=== PATIENT | female | born 1945 | race Caucasian/White ===

== ENCOUNTER 2017-09-24 14:11 | Emergency (ER) | payer BC, OTHER ==
[~2017-09-24] VITALS: Ht 157.5 cm; Wt 72.6 kg
[2017-09-24 15:08] LABS: Basophils # (auto) 0.1 uL; Basophils % (auto) 1.4 % (0.0-2.0); Eosinophils # (auto) 0.2 uL; Hemoglobin 13.6 g/dL (12.2-16.2); Lymphocytes # (auto) 2.2 uL; Lymphocytes % (auto) 26.5 % (10.0-50.0); Mean Corpuscular Hemoglobin 29.5 pg (28.0-32.0); Mean Corpuscular Hgb Conc. 33.9 g/dL (32.0-36.0); Monocytes # (auto) 0.4 uL; Monocytes % (auto) 5.3 % (0.0-12.0); Neutrophils # (auto) 5.5 uL; Neutrophils % (auto) 64.8 % (37.0-80.0); Nucleated Red Blood Cells % 0.1 %; Platelet Count (auto) 217 10^3/uL (140-450); Red Cell Distribution Width 14.7 % (11.8-14.3); White Blood Cell 8.4 10^3/uL (4.4-10.8)
[2017-09-24 15:40] LABS: Alanine Aminotransferase 37 U/L (13-56); Albumin 3.3 g/dL (3.4-5.0); Alkaline Phosphatase 105 U/L (45-117); Anion Gap 6 (5-15); Aspartate Aminotransferase 22 U/L (15-37); Bilirubin, Total 0.3 mg/dL (0.2-1.0); Blood Urea Nitrogen 11 mg/dL (7-18); Calcium 8.3 mg/dL (8.5-10.1); Carbon Dioxide 26 mmol/L (21-32); Chloride 106 mmol/L (98-107); GFR African American 78 mL/min; GFR Non-African American 64 mL/min; Glucose 263 mg/dL (74-106); Potassium 3.9 mmol/L (3.5-5.1); Sodium 138 mmol/L (136-145); Total Protein 7.2 g/dL (6.4-8.2)
[2017-09-24 16:12] LABS: Urine Bacteria FEW /hpf (None Seen); Urine Blood Negative /uL (Negative); Urine Mucus FEW (None Seen); Urine Specific Gravity 1.008 (1.001-1.035); Urine WBC 2 /hpf (0 - 5)
[2017-09-24 16:56] VITALS: BP 160/75
== END 2017-09-24 17:32 | disposition home or self-care (01) ==
LOC: ER 14:11
DX: R07.89 Other chest pain (principal); R51 Headache; E11.9 Type 2 diabetes mellitus without complications; I10 Essential (primary) hypertension; Z90.710 Acquired absence of both cervix and uterus
CPT/HCPCS: 36415; 71045; 80053; 81001; 84484; 85025; 93005; 99291

== ENCOUNTER 2020-11-27 06:52 | Emergency (ER) | payer OTHER ==
[~2020-11-27] VITALS: Ht 160 cm; Wt 74.8 kg
[2020-11-27 08:48] LABS: Urine Bacteria MANY /hpf (None Seen); Urine Blood Negative /uL (Negative); Urine Hyaline Cast FEW /lpf (0 - 2); Urine Mucus FEW (None Seen); Urine Specific Gravity 1.012 (1.001-1.035); Urine WBC 2 /hpf (0 - 5)
[2020-11-27] MEDS ORDERED: cloNIDine HCL 0.1 MG TAB PO ONE (09:15)
[2020-11-27 09:33] LABS: Eosinophils # (auto) 0.3 10 ^3/uL (0-0.8); Hemoglobin 11.2 g/dL (12.2-16.2); Monocytes # (auto) 0.5 10 ^3/uL (0-1.3)
[2020-11-27 09:36] LABS: Basophils # (auto) 0 10 ^3/uL (0-0.2); Basophils % (auto) 0.4 % (0.0-2.0); Hematocrit 33.7 % (36.0-46.0); Lymphocytes # (auto) 2.9 10 ^3/uL (0.4-5.4); Lymphocytes % (auto) 30.3 % (10.0-50.0); Mean Corpuscular Hgb Conc. 33.3 g/dL (32.0-36.0); Monocytes % (auto) 5.4 % (0.0-12.0); Neutrophils # (auto) 5.8 10 ^3/uL (1.6-8.6); Neutrophils % (auto) 60.9 % (37.0-80.0); Nucleated Red Blood Cells % 0.1 %; Platelet Count (auto) 232 10^3/uL (140-450); Red Blood Cells 4.16 10^6/uL (4.0-5.20); White Blood Cell 9.6 10^3/uL (4.4-10.8)
[2020-11-27 09:52] LABS: Albumin 3.2 g/dL (3.4-5.0); Calcium 8.4 mg/dL (8.5-10.1); Magnesium 1.9 mg/dL (1.6-2.6); Potassium 4.3 mmol/L (3.5-5.1)
[2020-11-27 09:58] LABS: BUN/Creatinine Ratio 16.4; Bilirubin, Total 0.2 mg/dL (0.2-1.0)
[2020-11-27 11:00] VITALS: BP 115/65
== END 2020-11-27 12:58 | disposition home or self-care (01) ==
LOC: ER 06:52
DX: M54.17 Radiculopathy, lumbosacral region (principal); M25.561 Pain in right knee; N39.0 Urinary tract infection, site not specified; I10 Essential (primary) hypertension; E11.21 Type 2 diabetes mellitus with diabetic nephropathy; E44.1 Mild protein-calorie malnutrition; I45.10 Unspecified right bundle-branch block; E78.5 Hyperlipidemia, unspecified; Z68.29 Body mass index [BMI] 29.0-29.9, adult; Z88.5 Allergy status to narcotic agent; Z88.8 Allergy status to other drugs, medicaments and biological substances; Z90.710 Acquired absence of both cervix and uterus
CPT/HCPCS: 36415; 71046; 72131; 73700; 80053; 81001; 83735; 84443; 85025; 93005

== ENCOUNTER 2024-07-08 03:34 | Inpatient (IN) | payer OTHER ==
[~2024-07-08] VITALS: Ht 157.5 cm; Wt 72.1 kg
[2024-07-08] MEDS: SODIUM CHLORIDE 0.9% 1,000 ML IV ONE (04:00)
--- NOTE | 2024-07-08 04:24 | ED.PDOC ---
History of Present Illness HPI Comments 79 y/o F, with a Hx of hemorrhoids, DM II, HLD, HTN, and hysterectomy, presents with c/o rectal bleeding, today. Patient endorses on sudden and unprovoked onset of constant bleeding emanating from her rectum since last night. She comments on blood being bright red in appearance and previous isolated episode of rectal bleeding taking place 1 month ago. Patient also c/o alternating constipation and diarrhea, lately, for unspecified duration of time. She refutes any recent abdominal surgery, injuries, strenuous activities, or other relevant or pertinent information at time of assessment. Patient denies having any abdominal or rectal pain, nausea, vomiting, lightheadedness, weakness, fever, chills, or other associated symptoms or modifiers at this time. Chief Complaint: Rectal Pain Time Seen by MD: 03:55 Primary Care Provider: DR GUILLAUME Reviewed Notes: Nurses Notes, Medications, Allergies Allergies: Coded Allergies: Codeine (Verified Allergy, Unknown, 09/24/17) Lisinopril (Verified Allergy, Unknown, 09/24/17) Information Source: Patient Mode of Arrival: Ambulatory Severity: Moderate Timing: Hours Duration: Since onset Prehospital treatment: None Past Medical History PAST MEDICAL HISTORY: DM (type II), High Lipids, HTN Past Medical History (Other): hemorrhoids Surgical History: Hysterectomy [employer]PER[employer] HELPER History: Denies all [employer] HELPER Hx Family History Family History: Unknown Social History Smoker: Non-Smoker Alcohol: Denies ETOH Use Drugs: Denies Drug Use Lives In: Home Gastrointestinal: reports: rectal bleeding All Other Systems: Reviewed and Negative (negative unless otherwise stated above or in HPI) Physical Exam General Appearance: No Apparent Distress, Normal HEENT: Normal ENT Inspection, Pharynx Normal, TMs Normal Neck: Full Range of Motion, Non-Tender, Normal, Normal Inspection Respiratory: Chest Non-Tender, Lungs Clear, No Accessory Muscle Use, No Respiratory Distress, Normal Breath Sounds Cardiovascular: No Edema, No JVD, No Murmur, No Gallop, Normal Peripheral Pulses, Regular Rate/Rhythm Breast Exam: Deferred Gastrointestinal: No Organomegaly, Non Tender, No Pulsatile Mass, Normal Bowel Sounds, Soft Genitalia: Deferred Pelvic: Deferred Rectal: Deferred Extremities: No calf tenderness, Normal capillary refill, Normal inspection, Normal range of motion, Non-tender, No pedal edema Musculoskeletal : Apperance: Normal Neurologic: Alert, property site manager II-XII nml as Tested, No Motor Deficits, Normal Affect, Normal Mood, No Sensory Deficits Cerebellar Function: Normal Reflexes: Normal Skin: Dry, Normal Color, Warm Lymphatic: No Adenopathy Was a procedure done? Was a procedure done?: No Differential Dx Considerations may include: hemorrhoids, lower GI bleed, anemia X-Ray, Labs, Meds, VS Vital Signs Date Time Temp Pulse Resp B/P (MAP) Pulse Ox O2 Delivery O2 Flow Rate FiO2 07/08/24 03:50 98.3 83 18 195/98 (130) 95 Lab Test 07/08/24 04:16 Range/Units White Blood Count 12.3 H 4.4-10.8 10^3/uL Red Blood Count 4.60 4.0-5.20 10^6/uL Hemoglobin 11.6 L 12.2-16.2 g/dL Hematocrit 35.8 L 36.0-46.0 % Mean Corpuscular Volume 77.7 L 80.0-100.0 fL Mean Corpuscular Hemoglobin 25.2 L 28.0-32.0 pg Mean Corpuscular Hemoglobin Concent 32.5 32.0-36.0 g/dL Red Cell Distribution Width 16.3 H 11.8-14.3 % Platelet Count 330 140-450 10^3/uL Mean Platelet Volume 6.1 L 6.9-10.8 fL Neutrophils (%) (Auto) 57.8 37.0-80.0 % Lymphocytes (%) (Auto) 32.4 10.0-50.0 % Monocytes (%) (Auto) 5.7 0.0-12.0 % Eosinophils (%) (Auto) 3.4 0.0-7.0 % Basophils (%) (Auto) 0.7 0.0-2.0 % Neutrophils # (Auto) 7.1 1.6-8.6 10 ^3/uL Lymphocytes # (Auto) 4.0 0.4-5.4 10 ^3/uL Monocytes # (Auto) 0.7 0-1.3 10 ^3/uL Eosinophils # (Auto) 0.4 0-0.8 10 ^3/uL Basophils # (Auto) 0.1 0-0.2 10 ^3/uL Nucleated Red Blood Cells 0.0 % Prothrombin Time 10.3 9.3-11.8 sec Prothrombin Time INR 0.97 0.9-1.15 Activated Partial Thromboplast Time 25.0 24.5-34.5 SEC Sodium Level 141 136-145 mmol/L Potassium Level 3.6 3.5-5.1 mmol/L Chloride Level 108 H 98-107 mmol/L Carbon Dioxide Level 24 20-31 mmol/L Anion Gap 9 5-15 Blood Urea Nitrogen 12 9-23 mg/dL Creatinine 1.13 H 0.550-1.02 mg/dL Glomerular Filtration Rate Calc 50 >90 mL/min BUN/Creatinine Ratio 10.6 10.0-20.0 Serum Glucose 183 H 74-106 mg/dL Calcium Level 9.8 8.7-10.4 mg/dL Current Medications Medications (Trade) Dose Ordered Sig/Kennedy Route Start Time Stop Time Status Last Admin Sodium Chloride 1,000 ml @ 1,000 mls/hr Q1H ONCE IV 07/08/24 04:00 07/08/24 04:59 DC 07/08/24 04:00 Time of 1ST Reevaluation: 04:25 Reevaluation 1ST: Unchanged Patient Education/Counseling: Diagnosis, Treatment Family Education/Counseling: No Family Present Additional Information I reviewed the following notes from patient's past medical encounters: ED physician note on 11/27/20 and 09/24/17 The following tests were ordered, and results were reviewed by me: CT abdomen/pelvis w/IV contrast, BMP, CBC, PTPTT I reviewed and agreed with the following test results read by other providers: CT abdomen/pelvis w/IV contrast I discussed treatment and results with medical personnel Departure 1 Departure Time of Disposition: 05:23 (Patient presented with bright red blood per rectum that was concerning for possible appendicits, gastritis, cholecystitis, colitis, gastroenteritis, sbo, rectal cancer, or orther possible surgical emergency. Data: 1. I ordered and reviewed the result of at least 3 labs including a CBC, BMP, and Urinalysis. 2. I independently interpreted the following tests: CT Abdoment and Pelvis is concerning for colitis or possible malignancy .Risk:This patient has a high risk of morbidity due to further diagnostic testing or treatment and may suffer from an acute abdominal process disorder. Workup reveals concerning for gastric cancer her bloody symptoms and patient should be admitted for further workup. and possible expert consultation. ) Impression: Primary Impression: Bright red blood per rectum Additional Impression: Generalized weakness Disposition: 09 ADMITTED INPATIENT Admit to: Med Surg Condition: Serious Critical Care Note Critical Care Time?: No Stability Stability form required: No Heart Score Heart Score: Heart Score Response (Comments) Value History N/A 0 EKG N/A 0 Age N/A 0 Risk Factors N/A 0 Troponin N/A 0 Total 0 I personally scribed for DEMETRIA RUBIO MD ([email or web address]) on 07/08/24 at 04:24. Electronically submitted by Alonzo Sainz ([email or web address]). DEMETRIA RUBIO MD Jul 08, 2024 04:24
[2024-07-08 04:31] LABS: Basophils # (auto) 0.1 10 ^3/uL (0-0.2); Eosinophils # (auto) 0.4 10 ^3/uL (0-0.8); Monocytes # (auto) 0.7 10 ^3/uL (0-1.3); Neutrophils # (auto) 7.1 10 ^3/uL (1.6-8.6)
[2024-07-08 04:32] LABS: Basophils % (auto) 0.7 % (0.0-2.0); Eosinophils % (auto) 3.4 % (0.0-7.0); Hematocrit 35.8 % (36.0-46.0); Hemoglobin 11.6 g/dL (12.2-16.2); Lymphocytes % (auto) 32.4 % (10.0-50.0); Mean Corpuscular Hemoglobin 25.2 pg (28.0-32.0); Mean Corpuscular Hgb Conc. 32.5 g/dL (32.0-36.0); Mean Corpuscular Volume 77.7 fL (80.0-100.0); Monocytes % (auto) 5.7 % (0.0-12.0); Neutrophils % (auto) 57.8 % (37.0-80.0); Platelet Count (auto) 330 10^3/uL (140-450); Red Cell Distribution Width 16.3 % (11.8-14.3); White Blood Cell 12.3 10^3/uL (4.4-10.8)
[2024-07-08 04:41] LABS: Potassium 3.6 mmol/L (3.5-5.1); Sodium 141 mmol/L (136-145)
[2024-07-08 04:42] LABS: Anion Gap 9 (5-15); Carbon Dioxide 24 mmol/L (20-31)
[2024-07-08 04:43] LABS: Calcium 9.8 mg/dL (8.7-10.4)
[2024-07-08 04:45] LABS: INR 0.97 (0.9-1.15); Prothrombin Time 10.3 sec (9.3-11.8)
[2024-07-08 04:47] LABS: BUN/Creatinine Ratio 10.6 (10.0-20.0); Blood Urea Nitrogen 12 mg/dL (9-23)
[2024-07-08 04:49] LABS: Chloride 108 mmol/L (98-107); Glucose 183 mg/dL (74-106)
[2024-07-08] MEDS: IOHEXOL 300 MG/ML 100ML BOTTLE IJ ONE (05:12)
--- NOTE | 2024-07-08 05:19 | DVH ---
Exam: CT CT AB PEL WITH IV CON ONLY History: brbpr Comparison Study: None available at time of dictation. Technique: Multidetector spiral CT of the abdomen was performed from lung bases to pubic symphysis. Axial imaging was performed with intravenous contrast following the uneventful administration of 100 ml Omnipaque 300. Coronal and sagittal multiplanar reformats were obtained from the axial data set b y the technologist. Radiation Dose : 1. Abdomen/Pelvis: CTDIvol 10.54 mGy, DLP 571.33 mGy*cm. Findings: Lung Bases: Lung bases are clear. Visualized portions of the heart and pericardium are unremarkable. Liver: The liver is normal in size. No focal lesions. Gallbladder and Biliary Tree: The gallbladder is unremarkable. No intrahepatic or extrahepatic bilia ry ductal dilatation. Spleen: Unremarkable Pancreas: The pancreas enhances normally and there are no focal lesions. The main pancreatic duct i s not dilated Adrenal Glands: Unremarkable Kidneys: Kidneys enhance symmetrically. No calculi or hydronephrosis. 1.9 cm right cortical renal cy st. GI tract: The stomach is grossly normal in appearance. No evidence of small bowel wall thickening or abnormal dilatation to suggest bowel obstruction. There is sigmoid diverticulosis without acute diver ticulitis. There is mild wall thickening in the cecum. The appendix is not visualized, however there are no inflammatory changes in the right lower quadrant to suggest acute appendicitis. Peritoneum/mesentery/retroperitoneum. No evidence of free intraperitoneal air. No ascites. No evidenc e of suspicious lymphadenopathy. Abdominal Wall: Unremarkable. Vasculature: Abdominal aorta and main branches are unremarkable. Normal vascular enhancement. Urinary Bladder: Grossly unremarkable for degree of distention. Pelvic Organs: Unremarkable Musculoskeletal: No aggressive focal bony lesions, acute fractures or dislocation. 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 IMPRESSION: 1. No acute abdominal or pelvic findings. 2. Mild wall thickening in the cecum could be related to underdistention. However, an underlying les ion is not excluded. Colonoscopy is recommended. 3. Colonic diverticulosis without acute diverticulitis.
[2024-07-08] MEDS ORDERED: NITROGLYCERIN 0.4 MG SL TAB SL PRN (06:45)
[2024-07-08] MEDS ORDERED: ONDANSETRON HCL 4 MG/2 ML VIAL IV PRN (07:00)
[2024-07-08] MEDS: SOD CHL 0.45% 1,000 ML IV ONE (07:10)
[2024-07-08] MEDS ORDERED: DEXTROSE (50%) 50ML SYRG IV PRN (07:15)
[2024-07-08] MEDS ORDERED: GOLYTELY 4L KIT PO ONE (07:15)
--- NOTE | 2024-07-08 07:22 | DVHHP2 ---
Admitting Diagnosis: GI bleed History of Present Illness HPI 79 y.o. female with a DM, HTN, arrived to the ED c/o lower abdominal pain and bright red blood per rectum for one day. Patient stated that she has had rectal bleeding episodes on and off for the past month or so along with episodes of constipation and diarrhea. Patient denies nausea, vomiting, fever, chills. Previous colonoscopy more than 10 y.a. Past Medical History Cardiac: HTN, Hyperlipidemia Endocrine: NIDDM Review of Systems Gastrointestinal: Abdominal Pain, Diarrhea, Constipation, Hematochezia H&P Exam Vital Signs Vital Signs Date Time Temp Pulse Resp B/P (MAP) Pulse Ox O2 Delivery O2 Flow Rate FiO2 07/08/24 03:50 98.3 83 18 195/98 (130) 95 General Appeara: Obese Head Exam: Normal inspection Neck Exam: Normal inspection Eye Exam: bilateral eye PERRL, bilateral eye EOMI Pulmonary/Respiratory: Lungs clear Cardiovascular/Chest: Regular rate Abdominal Pain Onset Location: RLQ, LLQ Neuro/Mental St: Alert Labs/Xrays Labs Test 07/08/24 04:16 Range/Units White Blood Count 12.3 H 4.4-10.8 10^3/uL Red Blood Count 4.60 4.0-5.20 10^6/uL Hemoglobin 11.6 L 12.2-16.2 g/dL Hematocrit 35.8 L 36.0-46.0 % Mean Corpuscular Volume 77.7 L 80.0-100.0 fL Mean Corpuscular Hemoglobin 25.2 L 28.0-32.0 pg Mean Corpuscular Hemoglobin Concent 32.5 32.0-36.0 g/dL Red Cell Distribution Width 16.3 H 11.8-14.3 % Platelet Count 330 140-450 10^3/uL Mean Platelet Volume 6.1 L 6.9-10.8 fL Neutrophils (%) (Auto) 57.8 37.0-80.0 % Lymphocytes (%) (Auto) 32.4 10.0-50.0 % Monocytes (%) (Auto) 5.7 0.0-12.0 % Eosinophils (%) (Auto) 3.4 0.0-7.0 % Basophils (%) (Auto) 0.7 0.0-2.0 % Neutrophils # (Auto) 7.1 1.6-8.6 10 ^3/uL Lymphocytes # (Auto) 4.0 0.4-5.4 10 ^3/uL Monocytes # (Auto) 0.7 0-1.3 10 ^3/uL Eosinophils # (Auto) 0.4 0-0.8 10 ^3/uL Basophils # (Auto) 0.1 0-0.2 10 ^3/uL Nucleated Red Blood Cells 0.0 % Prothrombin Time 10.3 9.3-11.8 sec Prothrombin Time INR 0.97 0.9-1.15 Activated Partial Thromboplast Time 25.0 24.5-34.5 SEC Sodium Level 141 136-145 mmol/L Potassium Level 3.6 3.5-5.1 mmol/L Chloride Level 108 H 98-107 mmol/L Carbon Dioxide Level 24 20-31 mmol/L Anion Gap 9 5-15 Blood Urea Nitrogen 12 9-23 mg/dL Creatinine 1.13 H 0.550-1.02 mg/dL Glomerular Filtration Rate Calc 50 >90 mL/min BUN/Creatinine Ratio 10.6 10.0-20.0 Serum Glucose 183 H 74-106 mg/dL Calcium Level 9.8 8.7-10.4 mg/dL Assessment/Plan Problem List: (1) GI bleed (2) Lesion of colon (3) DM (diabetes mellitus) (4) HTN (hypertension) (5) Bright red blood per rectum Plan NPO, Golytely, GI consult, IVF Plan discussed with: Patient JIA MENDOZA MD Jul 08, 2024 07:22
[2024-07-08] MEDS ORDERED: METF-370 PO (07:46)
[2024-07-08] MEDS ORDERED: SERT25TA84 PO (07:46)
[2024-07-08] MEDS ORDERED: AMLO1TAB21 PO (07:46)
[2024-07-08 08:33] VITALS: BP 173/70; PULSE 73; RESP 16; TEMP 97.5; O2SAT 93
[2024-07-08] MEDS ORDERED: PATIENTS OWN MEDICATION (Sertraline Hcl (Zoloft) 1 TAB) PO SCH (10:00)
[2024-07-08] MEDS ORDERED: PATIENTS OWN MEDICATION (Amlodipine Besylate 1 TAB) PO SCH (10:00)
[2024-07-08] MEDS: LOSARTAN POTASSIUM 25 MG TAB PO ONE (10:56)
[2024-07-08] MEDS: PANTOPRAZOLE 40 MG/10 ML VIAL INJ IV SCH (10:56)
[2024-07-08] MEDS: METOPROLOL TARTRATE 50 MG TAB PO SCH (10:57)
[2024-07-08] MEDS: InsuLIN REG 1unit/0.01ml Soln (100units/ml) SC SCH (11:43)
[2024-07-08] MEDS: ACCU-CHEK COMFORT CURVE STRIP VI SCH (11:43)
[2024-07-08 13:45] LABS: Hemoglobin 11.3 g/dL (12.2-16.2)
--- NOTE | 2024-07-08 14:17 | DVHDS2 ---
Discharge Summary Date of Admission Jul 08, 2024 at 06:43 Date of Discharge: Jul 10, 2024 Labs/Diagnostic Data: Laboratory Results Test 07/08/24 13:13 07/08/24 11:42 07/08/24 04:16 Hemoglobin 11.3 g/dL (12.2-16.2) Hematocrit 35.0 % (36.0-46.0) POC Glucose 148 mg/dl (70-106) White Blood Count 12.3 10^3/uL (4.4-10.8) Red Blood Count 4.60 10^6/uL (4.0-5.20) Mean Corpuscular Volume 77.7 fL (80.0-100.0) Mean Corpuscular Hemoglobin 25.2 pg (28.0-32.0) Mean Corpuscular Hemoglobin Concent 32.5 g/dL (32.0-36.0) Red Cell Distribution Width 16.3 % (11.8-14.3) Platelet Count 330 10^3/uL (140-450) Mean Platelet Volume 6.1 fL (6.9-10.8) Neutrophils (%) (Auto) 57.8 % (37.0-80.0) Lymphocytes (%) (Auto) 32.4 % (10.0-50.0) Monocytes (%) (Auto) 5.7 % (0.0-12.0) Eosinophils (%) (Auto) 3.4 % (0.0-7.0) Basophils (%) (Auto) 0.7 % (0.0-2.0) Neutrophils # (Auto) 7.1 10 ^3/uL (1.6-8.6) Lymphocytes # (Auto) 4.0 10 ^3/uL (0.4-5.4) Monocytes # (Auto) 0.7 10 ^3/uL (0-1.3) Eosinophils # (Auto) 0.4 10 ^3/uL (0-0.8) Basophils # (Auto) 0.1 10 ^3/uL (0-0.2) Nucleated Red Blood Cells 0.0 % Prothrombin Time 10.3 sec (9.3-11.8) Prothrombin Time INR 0.97 (0.9-1.15) Activated Partial Thromboplast Time 25.0 SEC (24.5-34.5) Sodium Level 141 mmol/L (136-145) Potassium Level 3.6 mmol/L (3.5-5.1) Chloride Level 108 mmol/L (98-107) Carbon Dioxide Level 24 mmol/L (20-31) Anion Gap 9 (5-15) Blood Urea Nitrogen 12 mg/dL (9-23) Creatinine 1.13 mg/dL (0.550-1.02) Glomerular Filtration Rate Calc 50 mL/min (>90) BUN/Creatinine Ratio 10.6 (10.0-20.0) Serum Glucose 183 mg/dL (74-106) Calcium Level 9.8 mg/dL (8.7-10.4) Other Laboratory Tests 07/08/24 13:13 07/08/24 04:16 Brief Hx & Hospital Course: Patient is a 79-year-old female with past medical history of hemorrhoids who presents with 1 day history of of bright blood per rectum. Patient noted the blood after having a bowel movement. She notes she became alarmed and presented to the ER. Hemoglobin was noted to be 11.6. Vitals were stable without any signs of hypotension. No sinus tachycardia was noted. BMP revealed BUN/creatinine of 12/1.13. Patient denies having history of colonoscopy due to fear of the procedure. CT abdomen and pelvis was done with contrast which did not reveal any acute abdominal pelvic findings. It was notable for mild thickening in the cecum that could be related to underdistention. It also noted that an underlying lesion is not excluded and that a colonoscopy is recommended. There is also colonic diverticulosis with acute diverticulitis. Patient noted to undergo colonoscopy and findings revealed 2+ engorged internal hemorrhoids that are likely source of bleeding. Patient had a 5 mm benign polyp in the rectum that was removed in addition to two 5 mm descending benign-appearing colon polyps that were removed, 2 mm benign-appearing flexure polyp that was removed, 2 mm benign-appearing cecal polyp that was removed. There is no other active bleeding noted up to the terminal ileum. Is recommended that the patient have a repeat colonoscopy in 2 to 3 years. Patient is to avoid blood thinners, NSAIDs for 7 to 10 days. Patient to have local anorectal hemorrhoidal care. Patient's diet was advanced to full mechanical without any issue. Patient discharged in stable condition. Patient to follow-up with gastroenterology outpatient. [facility] to arrange appointments. Condition at Discharge: Good Final Diagnosis/Problems List GIB likely due to internal hemorroids Secondary Diagnosis: Hypertension Discharge Disposition: Home Discharge Instruct/Medications Diet: Cardiac 2g Na,low cholest Activity: No Restrictions, As Tolerated Follow Up/Referral: Follow up with GI. Medications: No new medications. Discharge Statement: "Patient was advised to return to the ER or call 911 if any headaches, dizziness, shortness of breath, chest pain, abdominal pain, bleeding, fevers, or worsening of medical condition. Patient was counseled about treatment plan, medications, possible side effects, patientverbalized understanding. All questions were answered to the best of my ability. This discharge took greater then 30 minutes in planning, reviewing documentation, counseling the patient, and discussing with other team members." ASSESSMENT ASSESSMENT Assessment NEGRO APONTE DO Jul 08, 2024 14:17
[2024-07-08] MEDS: HYDROCORTONE 1% TOPICAL CREAM 30 GM TUBE TOP ONE (15:24)
[2024-07-08 20:54] VITALS: BP 160/72; PULSE 73; RESP 16; TEMP 98.5; O2SAT 99
--- NOTE | 2024-07-08 20:59 | DVHINCON2 ---
Date of service: Jul 08, [address] Ramirez Reason for Consultation Rectal bleeding History of Present Illness 79 y.o. female with a DM, HTN, arrived to the ED c/o lower abdominal pain and bright red blood per rectum for one day. Patient stated that she has had rectal bleeding episodes on and off for the past month or so along with episodes of constipation and diarrhea. Last night bleeding started at 9:00 p.m. and did not start until two a.m. and the patient presented to the ER. Since her presentation in the ER she has not had any further rectal bleeding initially but later this afternoon when she went to the bathroom she had another episode of bleeding. Patient denies nausea, vomiting, fever, chills. Previous colonoscopy more than 20 years ago Past Medical History Cardiac: HTN, Hyperlipidemia Endocrine: NIDDM Past Surgical History Negative Family History: Diabetes mellitus G8 FATHER Allergies: Coded Allergies: Codeine (Verified Allergy, Unknown, 09/24/17) Lisinopril (Verified Allergy, Unknown, 09/24/17) Home Meds Reported Medications Metformin Hydrochloride (Metformin Hcl) 500 Mg Tab, 500 MG PO DAILY for 30 Days, MG 07/08/24 Amlodipine Besylate (Amlodipine Besylate) 2.5 Mg Tab, 1 TAB PO DAILY, #30 TAB 5 Refills 07/08/24 Sertraline Hcl (Zoloft) 25 Mg Tab, 1 TAB PO DAILY, #30 TAB 2 Refills 07/08/24 Current Medications Current Medications Medications (Trade) Dose Ordered Sig/Kennedy Route PRN Reason Start Time Stop Time Status Last Admin Nitroglycerin (Ntrostat Sublingual) 0.4 mg Q5MINP PRN SL FOR CHEST PAIN 07/08/24 06:45 Pantoprazole Sodium (Protonix) 40 mg BID IV 07/08/24 10:00 07/08/24 10:56 Ondansetron HCl (Zofran) 4 mg Q6HPRN PRN IV NAUSEA / VOMITING 07/08/24 07:00 Diagnostic Test (Pha) (Accu-Chek Comfort Curve T) 1 strip Q6HR 07/08/24 12:00 07/08/24 17:05 Insulin Human Regular (InsuLIN R) Q6HR SC 07/08/24 12:00 Dextrose 50 ml UD PRN IV Blood Sugar LESS THAN 60 07/08/24 07:15 Patient Own Medication 1 tab DAILY PO 07/08/24 10:00 UNV Patient Own Medication 1 tab DAILY PO 07/08/24 10:00 UNV Metoprolol Tartrate (Lopressor Tablet) 50 mg BID PO 07/08/24 10:00 07/08/24 10:57 Amlodipine Besylate (Norvasc Tablet) 5 mg DAILY PO 07/09/24 10:00 Sertraline HCl (Zoloft) 25 mg DAILY PO 07/09/24 10:00 Vital Signs Vital Signs Date Time Temp Pulse Resp B/P (MAP) Pulse Ox O2 Delivery O2 Flow Rate FiO2 07/08/24 12:01 71 158/67 07/08/24 08:33 97.5 16 93 97.5 Physical Exam General Appeara: Obese well-developed well-nourished lady no acute distress Head Exam: Normal inspection, pupils equal and react to light Neck Exam: Normal inspection, supple Eye Exam: bilateral eye PERRL, bilateral eye EOMI Pulmonary/Respiratory: Lungs clear Cardiovascular/Chest: Regular rate rhythm Abdominal: Soft nontender obese Neuro/Mental St: Alert Labs/Diagnostic Data Labs Test 07/08/24 17:01 07/08/24 13:13 07/08/24 04:16 Range/Units POC Glucose 131 H 70-106 mg/dl Hemoglobin 11.3 L 12.2-16.2 g/dL Hematocrit 35.0 L 36.0-46.0 % White Blood Count 12.3 H 4.4-10.8 10^3/uL Red Blood Count 4.60 4.0-5.20 10^6/uL Mean Corpuscular Volume 77.7 L 80.0-100.0 fL Mean Corpuscular Hemoglobin 25.2 L 28.0-32.0 pg Mean Corpuscular Hemoglobin Concent 32.5 32.0-36.0 g/dL Red Cell Distribution Width 16.3 H 11.8-14.3 % Platelet Count 330 140-450 10^3/uL Mean Platelet Volume 6.1 L 6.9-10.8 fL Neutrophils (%) (Auto) 57.8 37.0-80.0 % Lymphocytes (%) (Auto) 32.4 10.0-50.0 % Monocytes (%) (Auto) 5.7 0.0-12.0 % Eosinophils (%) (Auto) 3.4 0.0-7.0 % Basophils (%) (Auto) 0.7 0.0-2.0 % Neutrophils # (Auto) 7.1 1.6-8.6 10 ^3/uL Lymphocytes # (Auto) 4.0 0.4-5.4 10 ^3/uL Monocytes # (Auto) 0.7 0-1.3 10 ^3/uL Eosinophils # (Auto) 0.4 0-0.8 10 ^3/uL Basophils # (Auto) 0.1 0-0.2 10 ^3/uL Nucleated Red Blood Cells 0.0 % Prothrombin Time 10.3 9.3-11.8 sec Prothrombin Time INR 0.97 0.9-1.15 Activated Partial Thromboplast Time 25.0 24.5-34.5 SEC Sodium Level 141 136-145 mmol/L Potassium Level 3.6 3.5-5.1 mmol/L Chloride Level 108 H 98-107 mmol/L Carbon Dioxide Level 24 20-31 mmol/L Anion Gap 9 5-15 Blood Urea Nitrogen 12 9-23 mg/dL Creatinine 1.13 H 0.550-1.02 mg/dL Glomerular Filtration Rate Calc 50 >90 mL/min BUN/Creatinine Ratio 10.6 10.0-20.0 Serum Glucose 183 H 74-106 mg/dL Calcium Level 9.8 8.7-10.4 mg/dL CT SCAN ABD PELVIS IMPRESSION: 1. No acute abdominal or pelvic findings. 2. Mild wall thickening in the cecum could be related to underdistention. However, an underlying lesion is not excluded. Colonoscopy is recommended. 3. Colonic diverticulosis without acute diverticulitis. Problems(with codes): (1) Sigmoid diverticulosis (2) Abnormal finding on GI tract imaging (3) Lesion of colon (4) DM (diabetes mellitus) (5) GI bleed (6) Bright red blood per rectum (7) Generalized weakness (8) HTN (hypertension) Plan/Recommendation Plan I discussed the need for a colonoscopy but the patient initially refused. She is concerned about possible complications of procedures. She agreed to follow up with me as an outpatient However later in the evening she had another bowel movement mixed with fresh bl ood She has decided to stay and changed her mind and is now agrreable to get a colonoscopy done while she is in the hospital Clear liquid diet Monitor labs; transfuse 1 u prbc if Hb drops below 7 Bowel prep tomorrow Colonoscopy scheduled for Plan discussed with: Patient, Other (ER Nurse) MAIDA HANLEY MD Jul 08, 2024 20:59
[2024-07-08 22:40] VITALS: BP 160/73; PULSE 72; RESP 18; TEMP 97.9; O2SAT 96
[2024-07-09] VITALS (8 sets, daily range): BP systolic 137–159; BP diastolic 43–87; PULSE 71–80; RESP 16–20; TEMP 97.4–98.7; O2SAT 96–100
[2024-07-09 07:12] LABS: Basophils # (auto) 0 10 ^3/uL (0-0.2); Eosinophils # (auto) 0.3 10 ^3/uL (0-0.8); Hemoglobin 10.4 g/dL (12.2-16.2); Lymphocytes # (auto) 2.9 10 ^3/uL (0.4-5.4); Lymphocytes % (auto) 31.3 % (10.0-50.0); Mean Corpuscular Hemoglobin 25.2 pg (28.0-32.0); Mean Corpuscular Hgb Conc. 32.4 g/dL (32.0-36.0); Neutrophils # (auto) 5.4 10 ^3/uL (1.6-8.6); Red Blood Cells 4.13 10^6/uL (4.0-5.20); White Blood Cell 9.1 10^3/uL (4.4-10.8)
[2024-07-09 07:14] LABS: Basophils % (auto) 0.4 % (0.0-2.0); Mean Corpuscular Volume 77.6 fL (80.0-100.0); Monocytes # (auto) 0.5 10 ^3/uL (0-1.3); Monocytes % (auto) 5.9 % (0.0-12.0); Neutrophils % (auto) 59.4 % (37.0-80.0); Platelet Count (auto) 241 10^3/uL (140-450); Red Cell Distribution Width 16.1 % (11.8-14.3)
[2024-07-09 07:30] LABS: Alanine Aminotransferase 13 U/L (7-40); Albumin 4.1 g/dL (3.2-4.8); Alkaline Phosphatase 83 U/L (46-116); Anion Gap 8 (5-15); Aspartate Aminotransferase 16 U/L (13-40); BUN/Creatinine Ratio 7.1 (10.0-20.0); Bilirubin, Total 0.5 mg/dL (0.2-1.0); Calcium 9.3 mg/dL (8.7-10.4); Carbon Dioxide 24 mmol/L (20-31); Chloride 107 mmol/L (98-107); Sodium 139 mmol/L (136-145); Total Protein 6.4 g/dL (5.7-8.2)
[2024-07-09 07:33] LABS: Blood Urea Nitrogen 8 mg/dL (9-23); Glucose 136 mg/dL (74-106)
[2024-07-09] MEDS: amLODIPine BESYLATE 5 MG TAB PO SCH (11:17)
[2024-07-09] MEDS: SERTRALINE HCL 50 MG TAB PO SCH (11:18)
[2024-07-09] MEDS: GOLYTELY 4L KIT PO ONE (11:21)
--- NOTE | 2024-07-09 13:47 | DVHPN2 ---
Progress Note - Dictate Date Seen: Jul 09, 2024 Medical Necessity Reason Pt with a Central, PICC or Fol: No Subjective Patient notes 2 more bloody bowel movements while being in the hospital. vital signs Vital Sign Date Time Temp Pulse Resp B/P (MAP) Pulse Ox O2 Delivery O2 Flow Rate FiO2 07/09/24 12:17 66 141/66 07/09/24 12:14 97.5 18 99 97.5 07/08/24 22:40 Room Air* 0 21 medications Current Medications Medications Dose Ordered Sig/Kennedy Route Start Time Stop Time Status Last Admin Dose Admin Nitroglycerin 0.4 mg Q5MINP PRN SL 07/08/24 06:45 Pantoprazole Sodium 40 mg BID IV 07/08/24 10:00 07/09/24 11:18 40 MG Ondansetron HCl 4 mg Q6HPRN PRN IV 07/08/24 07:00 Diagnostic Test (Pha) 1 strip Q6HR 07/08/24 12:00 07/09/24 12:00 1 STRIP Insulin Human Regular Q6HR SC 07/08/24 12:00 Dextrose 50 ml UD PRN IV 07/08/24 07:15 Patient Own Medication 1 tab DAILY PO 07/08/24 10:00 UNV Patient Own Medication 1 tab DAILY PO 07/08/24 10:00 UNV Metoprolol Tartrate 50 mg BID PO 07/08/24 10:00 07/09/24 11:17 50 MG Amlodipine Besylate 5 mg DAILY PO 07/09/24 10:00 07/09/24 11:17 5 MG Sertraline HCl 25 mg DAILY PO 07/09/24 10:00 07/09/24 11:18 25 MG objective General appearance: No acute distress Respiratory: Lungs clear to auscultation. No wheezing, crackles Cardiovascular: Regular rate and rhythm, no murmurs. No edema Abdomen: Soft, nondistended, nontender, bowel sounds present MSK: Normal range of motion. Neuro: Alert, no neurological deficits Psych: Appropriate mood and affect. laboratory and microbiology Laboratory Tests 07/09/24 06:23 Test 07/09/24 06:23 Range/Units Serum Glucose 136 H 74-106 mg/dL Assessment/Plan 1. GIB -Plan for colonoscopy 07/10 -Paula to be completed today -Daily CBC and CMP -Protonix 40mg IV daily -Full code Plan discussed with: Patient NEGRO CALLOWAY Jul 09, 2024 13:47
--- NOTE | 2024-07-09 21:15 | DVHPN2 ---
Progress Note - Dictate Date Seen: Jul 09, 2024 Medical Necessity Reason Pt with a Central, PICC or Fol: No Subjective No new complaints Drinking prep slowly Pt is undergoing bowel prep Continued rectal bleeding vital signs Vital Sign Date Time Temp Pulse Resp B/P (MAP) Pulse Ox O2 Delivery O2 Flow Rate FiO2 07/09/24 16:42 98.7 74 20 139/70 (93) 98 98.7 07/09/24 08:30 Room Air* 0 21 medications Current Medications Medications Dose Ordered Sig/Kennedy Route Start Time Stop Time Status Last Admin Dose Admin Nitroglycerin 0.4 mg Q5MINP PRN SL 07/08/24 06:45 Pantoprazole Sodium 40 mg BID IV 07/08/24 10:00 07/09/24 11:18 40 MG Ondansetron HCl 4 mg Q6HPRN PRN IV 07/08/24 07:00 Diagnostic Test (Pha) 1 strip Q6HR 07/08/24 12:00 07/09/24 12:00 1 STRIP Insulin Human Regular Q6HR SC 07/08/24 12:00 Dextrose 50 ml UD PRN IV 07/08/24 07:15 Patient Own Medication 1 tab DAILY PO 07/08/24 10:00 UNV Patient Own Medication 1 tab DAILY PO 07/08/24 10:00 UNV Metoprolol Tartrate 50 mg BID PO 07/08/24 10:00 07/09/24 11:17 50 MG Amlodipine Besylate 5 mg DAILY PO 07/09/24 10:00 07/09/24 11:17 5 MG Sertraline HCl 25 mg DAILY PO 07/09/24 10:00 07/09/24 11:18 25 MG objective General appearance: No acute distress Respiratory: Lungs clear to auscultation. No wheezing, crackles Cardiovascular: Regular rate and rhythm, no murmurs. No edema Abdomen: Soft, nondistended, nontender, bowel sounds present MSK: Normal range of motion. Neuro: Alert, no neurological deficits Psych: Appropriate mood and affect. laboratory and microbiology Laboratory Tests 07/09/24 06:23 Test 07/09/24 06:23 Range/Units Serum Glucose 136 H 74-106 mg/dL Problems(with codes): (1) Abnormal finding on GI tract imaging (2) Sigmoid diverticulosis (3) Bright red blood per rectum (4) GI bleed (5) Lesion of colon Prognosis PLAN Complete bowel prep Encourage pt Add extra bowel prep Colonoscopy in am Plan discussed with: Patient, Other (Nurse) MAIDA HANLEY MD Jul 09, 2024 21:15
[2024-07-09] MEDS: MAGNESIUM CITRATE SOLUTION 300 ML BTL PO ONE (22:04)
[2024-07-10 01:00] VITALS: BP 149/68; PULSE 73; RESP 16; TEMP 98.5; O2SAT 98
[2024-07-10 05:00] VITALS: BP 135/54; PULSE 75; RESP 17; TEMP 97.4; O2SAT 98
[2024-07-10] MEDS ORDERED: GOLYTELY 4L KIT PO ONE (06:00)
[2024-07-10] MEDS: MAGNESIUM CITRATE SOLUTION 300 ML BTL PO ONE (06:01)
[2024-07-10 07:45] LABS: Basophils # (auto) 0 10 ^3/uL (0-0.2); Basophils % (auto) 0.3 % (0.0-2.0); Eosinophils # (auto) 0.3 10 ^3/uL (0-0.8); Mean Corpuscular Volume 78.2 fL (80.0-100.0); Monocytes # (auto) 0.6 10 ^3/uL (0-1.3); Monocytes % (auto) 5.8 % (0.0-12.0)
[2024-07-10 07:48] LABS: Eosinophils % (auto) 2.9 % (0.0-7.0); Hematocrit 33.5 % (36.0-46.0); Lymphocytes # (auto) 2.9 10 ^3/uL (0.4-5.4); Lymphocytes % (auto) 28.7 % (10.0-50.0); Mean Corpuscular Hemoglobin 25.8 pg (28.0-32.0); Neutrophils # (auto) 6.2 10 ^3/uL (1.6-8.6); Neutrophils % (auto) 62.3 % (37.0-80.0); Platelet Count (auto) 304 10^3/uL (140-450); Red Blood Cells 4.29 10^6/uL (4.0-5.20); Red Cell Distribution Width 15.9 % (11.8-14.3)
[2024-07-10 07:54] LABS: Alanine Aminotransferase 15 U/L (7-40); Alkaline Phosphatase 88 U/L (46-116); Anion Gap 10 (5-15); BUN/Creatinine Ratio 5.8 (10.0-20.0); Calcium 9.6 mg/dL (8.7-10.4); Carbon Dioxide 22 mmol/L (20-31); Potassium 4.3 mmol/L (3.5-5.1); Sodium 139 mmol/L (136-145)
[2024-07-10 07:55] LABS: Albumin 4.6 g/dL (3.2-4.8); Aspartate Aminotransferase 18 U/L (13-40)
[2024-07-10 07:56] LABS: Bilirubin, Total 0.4 mg/dL (0.2-1.0); Total Protein 7.2 g/dL (5.7-8.2)
[2024-07-10 08:02] LABS: Blood Urea Nitrogen 7 mg/dL (9-23); Chloride 107 mmol/L (98-107); Glucose 141 mg/dL (74-106)
--- NOTE | 2024-07-10 08:22 | DVH ---
CHEST RADIOGRAPH Indication: PER PROTOCOL FOR PROCEDURE TODAY pain Technique: Single frontal view of the chest was obtained Comparison: None FINDINGS: Lines and Tubes: None Lungs: No focal consolidation. Pleura: No effusion. No pneumothorax. Cardiomediastinal contours: Unremarkable Bones: No acute osseous abnormality. IMPRESSION: No acute cardiopulmonary disease.
[2024-07-10 08:30] VITALS: PULSE 76; RESP 18; O2SAT 98
[2024-07-10 09:00] VITALS: BP 155/68; PULSE 76; RESP 16; TEMP 98.7; O2SAT 98
[2024-07-10] MEDS ORDERED: SODIUM CHLORIDE LOCK 0 ML ONE (10:50)
[2024-07-10] MEDS ORDERED: MIDAZOLAM HCL 5 MG/ML-1ML VIAL ONE (10:50)
[2024-07-10] MEDS ORDERED: diphenhdrAMINE HCL 50 MG/1 ML VL ONE (10:50)
[2024-07-10] MEDS ORDERED: fentaNYL CITRATE 100 MCG/2 ML VL ONE (10:51)
[2024-07-10] MEDS ORDERED: PROPOFOL 10 MG/ML 20 ML IV ONE ×2 (12:28→12:47)
[2024-07-10] MEDS ORDERED: LIDOCAINE 1% INJ PF 5ML AMP ONE (12:28)
[2024-07-10 12:55] VITALS: RESP 22; O2SAT 92
--- NOTE | 2024-07-10 13:04 | DVHOP2 ---
Operative Report DATE OF OPERATION: 07/10/24 PROCEDURE: Colonoscopy with snare polypectomy. PREOPERATIVE INDICATION: The patient is a 79 -year-old female undergoing colonoscopy for colon cancer screening and evaluation of recurrent rectal bleeding POSTOPERATIVE DIAGNOSES: 1. 2+ engorged internal hemorrhoids that were the likely source of bleeding 2. There was a 5 mm benign-appearing rectal polyp that was seen and removed by hot snare polypectomy 3. There were two less than 5 mm benign-appearing descending colon polyps that were seen and removed via cold snare polypectomy 4. There was a 2 mm benign-appearing hepatic flexure polyp that was seen and removed by cold snare polypectomy 5. There was a 2 mm benign-appearing cecal polyp that was seen and removed by cold snare polypectomy 6. Otherwise normal examination up to the terminal ileum with no active bleeding PROCEDURE PERFORMED BY: Maida Rivera M.D. SCOPE: Olympus videocolonoscope. ASA CLASS: 3 PREOPERATIVE MEDICATIONS: Mac sedation, Mac Coleman PROCEDURE IN DETAIL: After obtaining an informed consent, the patient was placed on left lateral decubitus position. She was then sedated with the above medications. A rectal examination was performed that was normal. The colonoscope was then passed through the anus into the rectosigmoid and through the descending, transverse, and ascending colon up to the cecum with visualization of the appendiceal orifice, base of the cecum and the ileocecal valve. The colonoscope was then withdrawn. Distal 2-3 cm of the terminal ileum were normal In the base of the cecum there was a 2 mm benign-appearing polyp that was seen and removed by cold snare polypectomy In the hepatic flexure there was a 2 mm polyp that was seen and removed by cold snare polypectomy In the descending colon there were two less than 5 mm benign-appearing polyps that were seen and removed by cold snare polypectomy In the rectum there was a 5-6 mm benign-appearing polyp that was seen and removed by hot snare polypectomy On retroflexion and straight on view the patient had 2+ engorged internal hemorrhoids The patient tolerated the procedure well without difficulty. WITHDRAWAL TIME: 8 minutes QUALITY OF THE PREP: [place] Bowel Prep score: 9. COMPLICATIONS : None SPECIMENS: Hepatic flexure polyp Cecal polyp Descending colon polyps Rectal polyp DISPOSITION: Transfer back to the floor Stable PLAN: 1. Repeat colonoscopy base on biopsy result likely in 2-3 years 2. Local anorectal hemorrhoidal care 3. Resume full liquid diet advance to soft mechanical 4. Hold aspirin NSAIDs blood thinners for 7-10 days 5. Outpatient follow up with me to review results and discuss further management MAIDA RIVERA MD Jul 10, 2024 13:04
--- NOTE | 2024-07-10 13:50 | ECG ---
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
[2024-07-10 16:30] VITALS: BP 153/49; PULSE 74; RESP 16; TEMP 97.6; O2SAT 97
== END 2024-07-10 18:15 | disposition home or self-care (01) | DRG 395 ==
LOC: ER 03:34 → OVERFLOW 06:43 → EAST 22:37
PROVIDERS: ADMIT Student in an Organized Health Care Education/Training Program; ATTEND Student in an Organized Health Care Education/Training Program
PROC: 0DBL8ZZ Excision of Transverse Colon, Via Natural or Artificial Opening Endoscopic (ICD-10-PCS; 2024-07-10)
PROC: 0DBP8ZZ Excision of Rectum, Via Natural or Artificial Opening Endoscopic (ICD-10-PCS; 2024-07-10)
PROC: 0DBM8ZZ Excision of Descending Colon, Via Natural or Artificial Opening Endoscopic (ICD-10-PCS; 2024-07-10)
PROC: 0DBH8ZZ Excision of Cecum, Via Natural or Artificial Opening Endoscopic (ICD-10-PCS; principal; 2024-07-10 12:29)
DX: K64.8 Other hemorrhoids (principal); E11.9 Type 2 diabetes mellitus without complications; E78.5 Hyperlipidemia, unspecified; K63.5 Polyp of colon; K59.00 Constipation, unspecified; K62.1 Rectal polyp; I10 Essential (primary) hypertension; Z88.5 Allergy status to narcotic agent; Z88.8 Allergy status to other drugs, medicaments and biological substances; Z79.899 Other long term (current) drug therapy; Z83.3 Family history of diabetes mellitus; Z79.84 Long term (current) use of oral hypoglycemic drugs; Z90.710 Acquired absence of both cervix and uterus; K57.30 Diverticulosis of large intestine without perforation or abscess without bleeding
CPT/HCPCS: 36415; 71045; 74177; 80048; 80053; 82962; 85014; 85018; 85025; 85610; 85730; 93005; 96361; 96374; G0378; J1815; J2250; J2470; J2704

== ENCOUNTER 2025-02-02 07:46 | Inpatient (IN) | payer OTHER ==
[~2025-02-02] VITALS: Ht 160 cm; Wt 71.9 kg
[~2025-02-02 07:46] MED LIST: AMLO1TAB21 PO; METF-370 PO; SERT25TA84 PO
--- NOTE | 2025-02-02 08:29 | ED.PDOC ---
HPI (NEURO) HPI Comments 79 y/o F, BIBA, with PMHx of anxiety, HTN, HLD, and DM presents to the ED for CC of weakness. EMS reports, patient is coming from home where she c/o generalized weakness x9days. Patient states, she has had additional associated symptoms of anxiety, chills, nausea, and shortness of breath for the same amount of time. Patient denies in recent flu-like symptoms, sick contacts, changes in prescription medications, slurred speech, or changes in vision. No other symptoms or modifying factors are present at this time. Chief Complaint: General Weakness Time Seen by MD: 08:05 Primary Care Provider: DR GUILLAUME Reviewed Notes: Nurses Notes, Medications, Allergies Information Source: Patient Mode of Arrival: EMS Severity: Moderate Dizziness/Weakness Severity: Unable to do activities Headache Severity: None Timing: Days Duration: Since onset Prehospital treatment: None Weakness Location: Generalized Onset: At rest Circumstances: Spontaneous Symptoms: Weakness Modifying factors: Nothing Associated Signs and Symptoms: Weakness Past Medical History PAST MEDICAL HISTORY: Anxiety, DM, High Lipids, HTN Surgical History: Hysterectomy [employer] History: Denies all [employer]ACH[employer] Hx Family History Family History: Unknown Social History Smoker: Non-Smoker Alcohol: Denies ETOH Use Drugs: Denies Drug Use Lives In: Home Constitutional: reports: chills, weakness; denies: diaphoresis, fatigue, fever, malaise, sweats, others EENTM: denies: blurred vision, double vision, ear bleeding, ear discharge, ear drainage, ear pain, ear ringing, eye pain, eye redness, hearing loss, mouth pain, mouth swelling, nasal discharge, nose bleeding, nose congestion, nose pain, photophobia, tearing, throat pain, throat swelling, voice changes, others Respiratory: reports: shortness of breath; denies: cough, hemoptysis, orthopnea, SOB at rest, SOB with excertion, stridor, wheezing, others Cardiovascular: denies: chest pain, dizzy spells, diaphoresis, Dyspnea on exertion, edema, irregular heart beat, left arm pain, lightheadedness, palpitations, PND, syncope, others Gastrointestinal: reports: nausea; denies: abdomen distended, abdominal pain, blood streaked bowels, constipated, diarrhea, dysphagia, difficulty swallowing, hematemesis, melena, poor appetite, poor fluid intake, rectal bleeding, rectal pain, vomiting, others Genitourinary: denies: abnormal vagina bleeding, burning, dyspareunia, dysuria, flank pain, frequency, hematuria, incontinence, pain, , vagina discharge, urgency, others Neurological: denies: dizziness, fainting, headache, left sided numbness, left sided weakness, numbness, paresthesia, pre-existing deficit, right sided numbness, right sided weakness, seizure, speech problems, tingling, tremors, weakness, others Musculoskeletal: denies: back pain, gout, joint pain, joint swelling, muscle pain, muscle stiffness, neck pain, others Integumetry: denies: bruises, change in color, change in hair/nails, dryness, laceration, lesions, lumps, rash, wounds, others Allergic/Immunocompromised: denies: Difficulty Healing, Frequent Infections, Hives, Itching, others Hematologic/Lymphatic: denies: anemia, blood clots, easy bleeding, easy bruising, swollen glands, others Endocrine: denies: excessive hunger, excessive sweating, excessive thirst, excessive urination, flushing, intolerance to cold, intolerance to heat, unexplained weight gain, unexplained weight loss, others Psychiatric: reports: anxiety; denies: bipolar disorder, depression, hopeless, panic disorder, schizophrenia, sleepless, suicidal, others All Other Systems: Reviewed and Negative Physical Exam General Appearance: Moderate Distress HEENT: Normal ENT Inspection, Pharynx Normal, TMs Normal Neck: Full Range of Motion, Non-Tender, Normal, Normal Inspection Respiratory: Chest Non-Tender, Lungs Clear, No Accessory Muscle Use, No Respiratory Distress, Normal Breath Sounds Cardiovascular: No Edema, No JVD, No Murmur, No Gallop, Normal Peripheral Pulses, Regular Rate/Rhythm Breast Exam: Deferred Gastrointestinal: No Organomegaly, Non Tender, No Pulsatile Mass, Normal Bowel Sounds, Soft Genitalia: Deferred Pelvic: Deferred Rectal: Deferred Extremities: No calf tenderness, Normal capillary refill, Normal inspection, Normal range of motion, Non-tender, No pedal edema Musculoskeletal : Apperance: Normal Neurologic: Alert, engraver block II-XII nml as Tested, No Motor Deficits, Normal Affect, Normal Mood, No Sensory Deficits Cerebellar Function: NOT DONE Reflexes: NOT DONE Skin: Dry, Normal Color, Warm Peripheral Pulses: 3+ Radial (R), 3+ Radial (L) Lymphatic: No Adenopathy Was a procedure done? Was a procedure done?: No Differential Diagnosis (SZ) Seizure: Psychogenic Seizure, Closed Head Injury, CVA/TIA General Weakness: Anemia, Dehydration, Electrolyte imbalance, Hypoglycemia, Hypotension X-Ray, Labs, Meds, VS Vital Signs Date Time Temp Pulse Resp B/P (MAP) Pulse Ox O2 Delivery O2 Flow Rate FiO2 02/02/25 07:57 89 02/02/25 07:50 98.7 89 20 135/66 98 98.7 Lab Test 02/02/25 09:16 02/02/25 08:19 Range/Units Blood Gas Specimen Type Arterial Blood Gas Sample Site Right radial Blood Gas Patient Temperature 37.0 Arterial Blood Date Drawn [id number] Arterial Blood pH 7.465 H 7.350-7.450 Arterial Blood Partial Pressure CO2 16.1 *L 32.0-45.0 mmHg Arterial Blood Partial Pressure O2 87.4 83.0-108.0 mmHg Arterial Blood HCO3 11.3 L 21.0-28.0 mmol/L Arterial Blood Oxygen Saturation 96.3 94.0-98.0 % Arterial Blood Base Excess -9.8 L -2.0-3.0 mmol/L Arterial Blood Oxyhemoglobin 95.5 94.0-98.0 % Arterial Blood Carboxyhemoglobin 0.2 L 0.5-1.5 % Arterial Blood Methemoglobin 0.6 0.0-1.5 % Mack Test Yes Blood Gas Total Hemoglobin 12.40 12.0-16.0 g/dL Blood Gas Modality Room air FiO2 % 21.0 Blood Gas Critical Value Read Back Yes Blood Gas Notified Whom Dennis hanna md Blood Gas Notified Time [id number] Blood Gas Notified By Mason crawford White Blood Count 5.2 4.4-10.8 10^3/uL Red Blood Count 4.72 4.0-5.20 10^6/uL Hemoglobin 11.3 L 12.2-16.2 g/dL Hematocrit 35.5 L 36.0-46.0 % Mean Corpuscular Volume 75.1 L 80.0-100.0 fL Mean Corpuscular Hemoglobin 24.0 L 28.0-32.0 pg Mean Corpuscular Hemoglobin Concent 32.0 32.0-36.0 g/dL Red Cell Distribution Width 17.0 H 11.8-14.3 % Platelet Count 134 L 140-450 10^3/uL Mean Platelet Volume 7.5 6.9-10.8 fL Neutrophils (%) (Auto) 37.0-80.0 % Lymphocytes (%) (Auto) 10.0-50.0 % Monocytes (%) (Auto) 0.0-12.0 % Basophils (%) (Auto) 0.0-2.0 % Neutrophils # (Auto) 1.6-8.6 10 ^3/uL Lymphocytes # (Auto) 0.4-5.4 10 ^3/uL Monocytes # (Auto) 0-1.3 10 ^3/uL Differential Total Cells Counted 100.0 100 Neutrophils % (Manual) 79 37.0-80.0 Band Neutrophils % (Manual) 15 Lymphocytes % (Manual) 4 L 10.0-50.0 Monocytes % (Manual) 0 0-12 Eosinophils % (Manual) 2 0-7 Basophils % (Manual) 0 0.0-2.0 Metamyelocytes % (manual) 0 Myelocytes % (Manual) 0 Promyelocytes % (Manual) 0 Blast Cells % (Manual) 0 Reactive Lymphocytes 0 Platelet Estimate Decreased Hypochromasia (manual) Slight Microcytosis Slight Sodium Level 138 136-145 mmol/L Potassium Level 3.6 3.5-5.1 mmol/L Chloride Level 106 98-107 mmol/L Carbon Dioxide Level 14 L 20-31 mmol/L Anion Gap 18 H 5-15 Blood Urea Nitrogen 34 H 9-23 mg/dL Creatinine 2.14 H 0.550-1.02 mg/dL Glomerular Filtration Rate Calc 23 >90 mL/min BUN/Creatinine Ratio 15.9 10.0-20.0 Serum Glucose 170 H 74-106 mg/dL Calcium Level 8.6 L 8.7-10.4 mg/dL Troponin I High Sensitivity 6 </=34 ng/L Beta-Hydroxybutyric Acid Pending Current Medications Medications (Trade) Dose Ordered Sig/Kennedy Route Start Time Stop Time Status Last Admin Sodium Chloride 1,000 ml @ 1,000 mls/hr Q1H ONCE IV 02/02/25 08:45 02/02/25 09:44 DC 02/02/25 09:30 Lorazepam (Ativan Inj) 1 mg ONCE ONCE IV 02/02/25 08:45 02/02/25 08:46 DC 02/02/25 10:29 Sodium Bicarbonate 50 ml ONCE ONCE IV 02/02/25 09:30 02/02/25 09:31 DC 02/02/25 10:37 Patient alert. Generalized weakness. Anxiety. Vitals stable. Blood sugar elevated. Cardiac marker within normal limits. Establish intravenous access. Was given fluids. Kidney function elevated. Anion gap elevated. Blood sugar elevated. Continue monitoring. Time of 1ST Reevaluation: 08:15 Reevaluation 1ST: Unchanged Patient Education/Counseling: Diagnosis, Treatment Family Education/Counseling: No Family Present Departure 1 Departure Time of Disposition: 08:56 Impression: Primary Impression: Uncontrolled diabetes mellitus Qualified Codes: E13.65 - Other specified diabetes mellitus with hyperglycemia Additional Impression: DKA (diabetic ketoacidosis) Qualified Codes: E13.10 - Other specified diabetes mellitus with ketoacidosis without coma Disposition: ADMITTED INPATIENT Admit to: Med Surg Condition: Guarded Critical Care Note Critical Care Time?: Yes (90 min-critical care time only) Stability Stability form required: No Heart Score Heart Score: Heart Score Response (Comments) Value History N/A 0 EKG N/A 0 Age N/A 0 Risk Factors N/A 0 Troponin N/A 0 Total 0 I personally scribed for MADHU HANNA MD ([email or web address]) on 02/02/25 at 08:29. Electronically submitted by Jaclyn Paulson ([email or web address]). MADHU HANNA MD Feb 02, 2025 08:29
[2025-02-02 08:38] LABS: Hematocrit 35.5 % (36.0-46.0); Hemoglobin 11.3 g/dL (12.2-16.2); Mean Corpuscular Hemoglobin 24.0 pg (28.0-32.0); Mean Corpuscular Volume 75.1 fL (80.0-100.0)
[2025-02-02 08:40] LABS: Chloride 106 mmol/L (98-107); Potassium 3.6 mmol/L (3.5-5.1); Sodium 138 mmol/L (136-145)
[2025-02-02 08:41] LABS: Anion Gap 18 (5-15)
[2025-02-02 08:47] LABS: BUN/Creatinine Ratio 15.9 (10.0-20.0)
[2025-02-02 08:50] LABS: Blood Urea Nitrogen 34 mg/dL (9-23); Calcium 8.6 mg/dL (8.7-10.4); Carbon Dioxide 14 mmol/L (20-31); Glucose 170 mg/dL (74-106)
[2025-02-02 09:15] LABS: Total Cells Counted 100.0 (100)
[2025-02-02 09:22] LABS: Base Excess -9.8 mmol/L (-2.0-3.0)
[2025-02-02 09:30] VITALS: PULSE 94; RESP 24; O2SAT 95
[2025-02-02] MEDS ORDERED: DEXTROSE (50%) 50ML SYRG IV PRN (09:30)
[2025-02-02] MEDS: SODIUM CHLORIDE 0.9% 1,000 ML IV ONE (09:30)
[2025-02-02] MEDS: LORazepam 2MG/ML-1ML VIAL IV ONE (10:29)
[2025-02-02] MEDS: SODIUM BICARB 8.4% 50Meq/50ml SYR Vial IV ONE (10:37)
[2025-02-02] MEDS: INSULIN DRIP 100 UNIT/100ML 100 ML IV SCH (11:27)
[2025-02-02] MEDS: ACCU-CHEK COMFORT CURVE STRIP VI SCH (11:27)
[2025-02-02] MEDS ORDERED: HYDROcodone-ACET 5/325MG TAB PO PRN (14:15)
[2025-02-02] MEDS ORDERED: MORPHINE SULFATE INJ 2 MG/ml SYRG IV PRN ×2 (14:15)
[2025-02-02] MEDS ORDERED: NITROGLYCERIN 0.4 MG SL TAB SL PRN (14:15)
[2025-02-02] MEDS ORDERED: ONDANSETRON HCL 4 MG/2 ML VIAL IV PRN (14:15)
--- NOTE | 2025-02-02 14:24 | DVHHP2 ---
History of Present Illness Reason for Visit: Generalized weakness for last one week History of Present Illness 79-year-old female with a known history of hypertension, diabetes mellitus type 2, anxiety disorder who presented to the hospital with generalized weakness found to have diabetic ketoacidosis currently on insulin drip. Patient denies any fevers chills cough phlegm denies any hematemesis hematochezia melena dysuria hematuria. Denies any medication noncompliance. Cardiovascular: HTN Psych: Anxiety Renal/: Acute renal failure Endocrine: Diabetes Past Surgical History: Hysterectomy Family History: None Smoke: No ALCOHOL: none Review of Systems Review of Systems Twelve review of system are negative besides mentioned above. Allergies: Coded Allergies: Codeine (Verified Allergy, Unknown, 09/24/17) Lisinopril (Verified Allergy, Unknown, 09/24/17) Medications Current Medications Medications Dose Ordered Sig/Kennedy Route Start Time Stop Time Status Last Admin Dose Admin Insulin Human (Reg)/Sodium Chloride 100 ml @ 0.5 mls/hr Q24H IV 02/02/25 09:30 02/02/25 11:27 1.5 MLS/HR Diagnostic Test (Pha) 1 strip Q90MIN 02/02/25 10:30 02/02/25 13:33 1 STRIP Dextrose 50 ml PRN PRN IV 02/02/25 09:30 Exam Vital Signs Vital Signs Date Time Temp Pulse Resp B/P (MAP) Pulse Ox O2 Delivery O2 Flow Rate FiO2 02/02/25 12:00 104 41 145/55 (85) 95 02/02/25 09:30 Room Air* 0 21 02/02/25 09:23 98.3 98.3 Exam HEENT pupils are reactive Neck is supple CV is S1-S2 regular rate and rhythm Respiratory are clear GI positive bowel sound 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 no 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 Labs/Xrays Labs Test 02/02/25 12:04 02/02/25 09:16 02/02/25 08:19 Range/Units POC Glucose 167 H 70-106 mg/dl Blood Gas Specimen Type Arterial Blood Gas Sample Site Right radial Blood Gas Patient Temperature 37.0 Arterial Blood Date Drawn [id number] Arterial Blood pH 7.465 H 7.350-7.450 Arterial Blood Partial Pressure CO2 16.1 *L 32.0-45.0 mmHg Arterial Blood Partial Pressure O2 87.4 83.0-108.0 mmHg Arterial Blood HCO3 11.3 L 21.0-28.0 mmol/L Arterial Blood Oxygen Saturation 96.3 94.0-98.0 % Arterial Blood Base Excess -9.8 L -2.0-3.0 mmol/L Arterial Blood Oxyhemoglobin 95.5 94.0-98.0 % Arterial Blood Carboxyhemoglobin 0.2 L 0.5-1.5 % Arterial Blood Methemoglobin 0.6 0.0-1.5 % Mack Test Yes Blood Gas Total Hemoglobin 12.40 12.0-16.0 g/dL Blood Gas Modality Room air FiO2 % 21.0 Blood Gas Critical Value Read Back Yes Blood Gas Notified Whom Dennis hanna md Blood Gas Notified Time [id number] Blood Gas Notified By Mason crawford White Blood Count 5.2 4.4-10.8 10^3/uL Red Blood Count 4.72 4.0-5.20 10^6/uL Hemoglobin 11.3 L 12.2-16.2 g/dL Hematocrit 35.5 L 36.0-46.0 % Mean Corpuscular Volume 75.1 L 80.0-100.0 fL Mean Corpuscular Hemoglobin 24.0 L 28.0-32.0 pg Mean Corpuscular Hemoglobin Concent 32.0 32.0-36.0 g/dL Red Cell Distribution Width 17.0 H 11.8-14.3 % Platelet Count 134 L 140-450 10^3/uL Mean Platelet Volume 7.5 6.9-10.8 fL Neutrophils (%) (Auto) 37.0-80.0 % Lymphocytes (%) (Auto) 10.0-50.0 % Monocytes (%) (Auto) 0.0-12.0 % Basophils (%) (Auto) 0.0-2.0 % Neutrophils # (Auto) 1.6-8.6 10 ^3/uL Lymphocytes # (Auto) 0.4-5.4 10 ^3/uL Monocytes # (Auto) 0-1.3 10 ^3/uL Differential Total Cells Counted 100.0 100 Neutrophils % (Manual) 79 37.0-80.0 Band Neutrophils % (Manual) 15 Lymphocytes % (Manual) 4 L 10.0-50.0 Monocytes % (Manual) 0 0-12 Eosinophils % (Manual) 2 0-7 Basophils % (Manual) 0 0.0-2.0 Metamyelocytes % (manual) 0 Myelocytes % (Manual) 0 Promyelocytes % (Manual) 0 Blast Cells % (Manual) 0 Reactive Lymphocytes 0 Platelet Estimate Decreased Hypochromasia (manual) Slight Microcytosis Slight Sodium Level 138 136-145 mmol/L Potassium Level 3.6 3.5-5.1 mmol/L Chloride Level 106 98-107 mmol/L Carbon Dioxide Level 14 L 20-31 mmol/L Anion Gap 18 H 5-15 Blood Urea Nitrogen 34 H 9-23 mg/dL Creatinine 2.14 H 0.550-1.02 mg/dL Glomerular Filtration Rate Calc 23 >90 mL/min BUN/Creatinine Ratio 15.9 10.0-20.0 Serum Glucose 170 H 74-106 mg/dL Calcium Level 8.6 L 8.7-10.4 mg/dL Troponin I High Sensitivity 6 </=34 ng/L SEPSIS Sepsis Screen Date sepsis recognized/suspect: Feb 02, 2025 Time Sepsis recognized/suspect: 1346 Recent Procedure: No On Antibiotic Therapy: No Respiratory Rate >20: Yes Heart Rate >90: Yes Temp<36 C (96.8 F) or >38.3 C: No SBP <90 or MAP <65 mmHG: No New Acute Mental Status Change: No Is the patient on CPAP, BIPAP,: No Physician Orders Electrocardigram (02/02/25 08:01) Urinalysis (02/02/25 08:05) Abg W/ Co-Ox (02/02/25 08:57) Beta-Hydroxybutyrate (02/02/25 08:57) Insulin Drip 100 Unit/100ml (Myxredlin 1 (02/02/25 09:30) Glucose Blood (Accu-Chek Comfort Curve T (02/02/25 10:30) D/C All Diabetic Medications (02/02/25 09:28) Insulin Drip Protocol (02/02/25 09:28) Dextrose 50% Syringe (02/02/25 09:30) Admit (02/02/25 14:10) Code Status (02/02/25 14:10) Hydrocodone-Acet 5/325mg Tab ([place] 5/32 (02/02/25 14:15) Ondansetron Hcl (Zofran) (02/02/25 14:15) Enoxaparin Sodium (Lovenox) (02/03/25 10:00) Fall Risk Precautions In Place QSHIFT (02/02/25 14:10) Pt Request For Service (02/02/25 14:10) Condition: Critical (02/02/25 14:10) Acetaminophen Tablet (Tylenol Tablet) (02/02/25 14:15) Clear Liq Diet (02/02/25 Dinner) Morphine Sulfate Injection (02/02/25 14:15) Nitroglycerin Sublingual (Ntrostat Subli (02/02/25 14:15) Morphine Sulfate Injection (02/02/25 14:15) Stat Ekg For Chest Pain (02/02/25 14:10) Notify Of Changes From Base (02/02/25 14:10) [facility] (02/02/25 14:10) Emergency Dysrhythmia Protocol (02/02/25 14:10) Rhythm Strips Once Every Shift (02/02/25 14:10) Oxygen By Nasal Cannula (02/02/25 14:10) Basic Metabolic Panel (02/02/25 18:00) Basic Metabolic Panel (02/03/25 00:00) Basic Metabolic Panel (02/03/25 06:00) Basic Metabolic Panel (02/03/25 12:00) Basic Metabolic Panel (02/03/25 18:00) Magnesium (02/02/25 18:00) Magnesium (02/03/25 00:00) Magnesium (02/03/25 06:00) Magnesium (02/03/25 12:00) Magnesium (02/03/25 18:00) Phosphorus (02/02/25 18:00) Phosphorus (02/03/25 00:00) Phosphorus (02/03/25 06:00) Phosphorus (02/03/25 12:00) Phosphorus (02/03/25 18:00) Vital Signs Date Time Temp Pulse Resp B/P (MAP) Pulse Ox O2 Delivery O2 Flow Rate FiO2 02/02/25 12:00 104 41 145/55 (85) 95 02/02/25 10:01 94 27 135/53 (80) 92 02/02/25 09:30 94 24 95 Room Air* 0 21 02/02/25 09:23 98.3 94 24 135/42 (73) 95 98.3 02/02/25 07:57 89 02/02/25 07:50 98.7 89 20 135/66 98 98.7 Laboratory Tests Test 02/02/25 08:19 White Blood Count 5.2 10^3/uL (4.4-10.8) Medications Medications Dose Ordered Sig/Kennedy Route Start Time Stop Time Status Last Admin Dose Admin Diagnostic Test (Pha) 1 strip Q90MIN 02/02/25 10:30 02/02/25 13:33 1 STRIP Insulin Human (Reg)/Sodium Chloride 100 ml @ 0.5 mls/hr Q24H IV 02/02/25 09:30 02/02/25 11:27 1.5 MLS/HR Lorazepam 1 mg ONCE ONCE IV 02/02/25 08:45 02/02/25 08:46 DC 02/02/25 10:29 1 MG Sodium Bicarbonate 50 ml ONCE ONCE IV 02/02/25 09:30 02/02/25 09:31 DC 02/02/25 10:37 50 ML Sodium Chloride 1,000 ml @ 1,000 mls/hr Q1H ONCE IV 02/02/25 08:45 02/02/25 09:44 DC 02/02/25 09:30 1,000 MLS/HR Assessment/Plan Assessment/Plan 79-year-old female with a known history of diabetes mellitus type 2, hypertension, anxiety disorder presented to the hospital with generalized weakness found to have 1. Diabetic ketoacidosis 2. Metabolic acidosis secondary to 1. 3. Acute kidney injury suspected secondary to vasomotor nephropathy 4. Diabetes mellitus type 2 but currently in DKA 5. Hypertension 6. Anxiety disorder -IV fluids, insulin drip, check hemoglobin A1c -social service worker consultation for home health home safety evaluation upon discharge -physical therapy evaluation and treatment Plan discussed with: Patient My Orders Orders - WALESKA CHAVARRIA MD Procedure Category Date Status Time Admit ADMIT 02/02/25 Transmitted 14:10 Code Status CODE 02/02/25 Transmitted 14:10 Hydrocodone-Acet PHA 02/02/25 Logged 5/325mg Tab ([place]ondo 14:15 Ondansetron Hcl PHA 02/02/25 Transmitted (Zofran) 14:15 Enoxaparin Sodium PHA 02/03/25 Transmitted (Lovenox) 10:00 Fall Risk Precautions NIK 8/19/[address] 14:10 Pt Request For Service PT 02/02/25 Logged 14:10 Condition: Critical INK 02/02/25 In Process 14:10 Acetaminophen Tablet PHA 02/02/25 Transmitted (Tylenol Tablet) 14:15 Clear Liq Diet DIET 02/02/25 Transmitted Dinner Morphine Sulfate PHA 02/02/25 Transmitted Injection 14:15 Nitroglycerin PHA 02/02/25 Transmitted Sublingual (Ntrostat 14:15 Morphine Sulfate PHA 02/02/25 Transmitted Injection 14:15 Stat Ekg For Chest [facility] 02/02/25 In Process Pain 14:10 Notify Of Changes [facility] 02/02/25 In Process From Base 14:10 [facility] 02/02/25 In Process 24 Hours 14:10 Emergency Dysrhythmia [facility] 02/02/25 In Process Protocol 14:10 Rhythm Strips Once [facility] 02/02/25 In Process Every Shift 14:10 Oxygen By Nasal RT 02/02/25 Transmitted Cannula 14:10 Basic Metabolic Panel LAB 02/02/25 Logged 18:00 Basic Metabolic Panel LAB 02/03/25 Verified 00:00 Basic Metabolic Panel LAB 02/03/25 Verified 06:00 Basic Metabolic Panel LAB 02/03/25 Verified 12:00 Basic Metabolic Panel LAB 02/03/25 Verified 18:00 Magnesium LAB 02/02/25 Logged 18:00 Magnesium LAB 02/03/25 Verified 00:00 Magnesium LAB 02/03/25 Verified 06:00 Magnesium LAB 02/03/25 Verified 12:00 Magnesium LAB 02/03/25 Verified 18:00 Phosphorus LAB 02/02/25 Logged 18:00 Phosphorus LAB 02/03/25 Verified 00:00 Phosphorus LAB 02/03/25 Verified 06:00 Phosphorus LAB 02/03/25 Verified 12:00 Phosphorus LAB 02/03/25 Verified 18:00 Date of Service: Feb 02, 2025 Billing Provider: WALESKA CHAVARRIA MD Common Visit Codes: NOT BILLABLE WALESKA CHAVARRIA MD Feb 02, 2025 14:23
[2025-02-02 18:30] LABS: Chloride 106 mmol/L (98-107); Potassium 3.7 mmol/L (3.5-5.1); Sodium 140 mmol/L (136-145)
[2025-02-02 18:31] LABS: Anion Gap 15 (5-15)
[2025-02-02 18:36] LABS: BUN/Creatinine Ratio 15.7 (10.0-20.0)
[2025-02-02 18:39] LABS: Blood Urea Nitrogen 35 mg/dL (9-23); Calcium 7.7 mg/dL (8.7-10.4); Carbon Dioxide 19 mmol/L (20-31); Glucose 141 mg/dL (74-106); Magnesium 1.5 mg/dL (1.6-2.6)
--- NOTE | 2025-02-02 18:59 | ECG ---
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
[2025-02-02 19:30] VITALS: BP 119/65; PULSE 92; RESP 20; TEMP 97.9; O2SAT 92
[2025-02-02 20:00] VITALS: PULSE 92; RESP 20; O2SAT 92
[2025-02-03] VITALS: BP 120/60; PULSE 97; RESP 15; TEMP 98.6; O2SAT 98
[2025-02-03 00:49] LABS: Chloride 104 mmol/L (98-107); Potassium 3.3 mmol/L (3.5-5.1); Sodium 138 mmol/L (136-145)
[2025-02-03 00:50] LABS: Anion Gap 14 (5-15); Calcium 7.7 mg/dL (8.7-10.4); Carbon Dioxide 20 mmol/L (20-31)
[2025-02-03 00:55] LABS: BUN/Creatinine Ratio 19.1 (10.0-20.0); Glucose 94 mg/dL (74-106)
[2025-02-03 00:58] LABS: Blood Urea Nitrogen 37 mg/dL (9-23); Magnesium 1.5 mg/dL (1.6-2.6)
[2025-02-03] MEDS: MAGNESIUM SULFATE 1GM/100ML 100 ML IV ONE (01:34)
[2025-02-03] MEDS: POTASSIUM CHL 20MEQ/100ML 100 ML IV ONE (01:53)
[2025-02-03 04:00] VITALS: BP 125/60; PULSE 97; RESP 15; TEMP 98.2; O2SAT 98
[2025-02-03] MEDS ORDERED: METO-158 PO (04:48)
[2025-02-03] MEDS ORDERED: BUSP10TA90 PO (04:48)
[2025-02-03] MEDS: POTASSIUM EFFERVESENT TAB 25 MEQ PO ONE (06:00)
[2025-02-03] MEDS: D5W/SOD CHLO 0.9% 1,000 ML IV SCH (06:21)
--- NOTE | 2025-02-03 07:28 | DVH ---
INDICATION: Acute kidney injury on chronic renal disease. TECHNIQUE: Multiple real-time sonographic images of the kidneys and bladder were obtained. COMPARISON: No prior for comparison. FINDINGS: RIGHT kidney measures 9.0 cm in length with increased parenchymal echotexture and normal cortical thi ckness. Anechoic interpolar cystic structure measures 2.1 x 1.9 x 1.8 cm. No nephrolithiasis or hydronephrosis. LEFT kidney measures 8.8 cm in length with normal parenchymal echotexture and cortical thickness. No nephrolithiasis or hydronephrosis. No large intraluminal masses are seen in the bladder. Urinary bladder wall thickness is 0.3 cm. No ev idence of calculus. No evidence of postvoid residual. IMPRESSION: 1. Nonspecific increased right renal parenchymal echotexture and interpolar renal cyst.
[2025-02-03 08:17] LABS: Chloride 105 mmol/L (98-107); Sodium 137 mmol/L (136-145)
[2025-02-03 08:18] LABS: Anion Gap 14 (5-15)
[2025-02-03 08:23] LABS: Glucose 99 mg/dL (74-106)
[2025-02-03 08:24] LABS: BUN/Creatinine Ratio 14.8 (10.0-20.0); Magnesium 1.9 mg/dL (1.6-2.6)
[2025-02-03 08:25] LABS: Blood Urea Nitrogen 26 mg/dL (9-23); Calcium 7.6 mg/dL (8.7-10.4); Carbon Dioxide 18 mmol/L (20-31); Potassium 3.4 mmol/L (3.5-5.1)
[2025-02-03 10:00] VITALS: PULSE 85; RESP 18; O2SAT 93
[2025-02-03] MEDS ORDERED: ENOXAPARIN SOD 40 MG/0.4 ML SYRINGE SC SCH (10:00)
[2025-02-03] MEDS: ENOXAPARIN SOD 30 MG/0.3 ML SYRINGE SC SCH (10:00)
[2025-02-03] MEDS: SODIUM CHLORIDE 0.9% 1,000 ML IV SCH (12:15)
[2025-02-03 12:26] LABS: Protein, Urine 21.9 mg/dL (1-14)
[2025-02-03 12:43] LABS: Urine Protein, UAD Negative (Negative)
--- NOTE | 2025-02-03 13:47 | DVHINCON2 ---
Date of service: Feb 03, [address] Pinon Reason for Consultation DAVID History of Present Illness 79-year-old female past medical history of diabetes, hypertension presents to the hospital complaining of vague and subjective weakness. Overnight patient was started on insulin drip with a presumed diagnosis of DKA however there are no recorded episodes of significant hyperglycemia. Patient reports a history of chronic kidney disease stage IIIB Nephrology consulted cr level Allergies: Coded Allergies: Codeine (Verified Allergy, Unknown, 09/24/17) Lisinopril (Verified Allergy, Unknown, 09/24/17) Home Meds Reported Medications Buspirone Hcl (Buspirone Hcl) 10 Mg Tab, 10 MG PO Q12HR for 30 Days, MG 02/03/25 Metoprolol Tartrate (Metoprolol Tartrate) 50 Mg Tab, 50 MG PO BIDLS for 30 Days, MG 02/03/25 Metformin Hydrochloride (Metformin Hcl) 500 Mg Tab, 500 MG PO DAILY for 30 Days, MG 07/08/24 Amlodipine Besylate (Amlodipine Besylate) 2.5 Mg Tab, 1 TAB PO DAILY, #30 TAB 5 Refills 07/08/24 Sertraline Hcl (Zoloft) 25 Mg Tab, 1 TAB PO DAILY, #30 TAB 2 Refills 07/08/24 Current Medications Current Medications Medications (Trade) Dose Ordered Sig/Kennedy Route PRN Reason Start Time Stop Time Status Last Admin Acetaminophen/ Hydrocodone Bitart ([place] 5/325MG Tab) 1 tab Q4HP PRN PO MODERATE PAIN (4-6 PAIN SCALE) 02/02/25 14:15 Hold Ondansetron HCl (Zofran) 4 mg Q4HP PRN IV NAUSEA / VOMITING 02/02/25 14:15 Enoxaparin Sodium (Lovenox) 40 mg DAILY SC 02/03/25 10:00 UNV Acetaminophen (Tylenol Tablet) 650 mg Q6HP PRN PO PAIN SCALE 1-3 OR TEMP>100.4 02/02/25 14:15 Morphine Sulfate 2 mg Q4HPRN PRN IV SEVERE PAIN (7-10 PAIN SCALE) 02/02/25 14:15 Hold Nitroglycerin (Ntrostat Sublingual) 0.4 mg Q5MINP PRN SL FOR CHEST PAIN 02/02/25 14:15 Morphine Sulfate 2 mg Q30M PRN IV FOR CHEST PAIN 02/02/25 14:15 Hold Enoxaparin Sodium (Lovenox) 30 mg DAILY SC 02/03/25 10:00 Dextrose/Sodium Chloride 1,000 ml @ 100 mls/hr Q10H IV 02/03/25 06:00 02/03/25 12:36 DC 02/03/25 06:21 Sodium Chloride 1,000 ml @ 125 mls/hr Q8H IV 02/03/25 12:15 Family History: Diabetes mellitus G8 FATHER H&P Exam Vital Signs/I&O Vital Sign Date Time Temp Pulse Resp B/P (MAP) Pulse Ox O2 Delivery O2 Flow Rate FiO2 02/03/25 11:30 76 16 147/53 (84) 92 02/03/25 10:15 98.0 98.0 02/02/25 20:00 Nasal Cannula* 3 32 Intake and Output 02/02/25 02/03/25 19:00 07:00 Intake Total 1000 ml 254.5 ml Output Total 100 ml Balance 1000 ml 154.5 ml Intake Oral 250 ml IV Total 1000 ml 4.5 ml Output Urine Total 100 ml # Bowel Movements 2 Physical Exam Elderly female Not in overt distress Abdomen is soft No pitting edema Labs/Diagnostic Data Labs/Diagnostic Data Laboratory Tests Test 02/03/25 12:10 02/03/25 10:57 02/03/25 09:13 02/03/25 07:30 Range/Units Urine Color Light-yellow Yellow Urine Clarity Clear Clear Urine pH 5.0 5.0-9.0 Urine Specific [place] 1.013 1.001-1.035 Urine Protein Negative Negative Urine Ketones Negative Negative Urine Blood Negative Negative /uL Urine Nitrite Negative Negative Urine Bilirubin Negative Negative Urine Urobilinogen Normal Negative mg/dL Urine Leukocyte Esterase Negative Negative /uL Urine RBC <1 0 - 4 /hpf Urine Microscopic WBC 1 0-5 /HPF Urine Squamous Epithelial Cells Few <5 /hpf Urine Bacteria None seen None Seen /hpf Urine Creatinine 59.52 30.0-125.0 mg/dL Urine Protein/Creatinine Ratio 0.37 Urine Glucose Normal Normal mg/dL Urine Total Protein 21.9 H 1-14 mg/dL Hemoglobin A1c 7.4 H <5.7 % A1C Sodium Level 137 136-145 mmol/L Potassium Level 3.4 L 3.5-5.1 mmol/L Chloride Level 105 98-107 mmol/L Carbon Dioxide Level 18 L 20-31 mmol/L Anion Gap 14 5-15 Blood Urea Nitrogen 26 #H 9-23 mg/dL Creatinine 1.76 H 0.550-1.02 mg/dL Glomerular Filtration Rate Calc 29 >90 mL/min BUN/Creatinine Ratio 14.8 10.0-20.0 Serum Glucose 99 74-106 mg/dL Calcium Level 7.6 L 8.7-10.4 mg/dL Phosphorus Level 3.2 2.4-5.1 mg/dL Magnesium Level 1.9 1.6-2.6 mg/dL Test 02/03/25 04:54 02/03/25 03:08 02/03/25 01:43 02/03/25 00:27 Range/Units POC Glucose 103 111 H 91 70-106 mg/dl Sodium Level 138 136-145 mmol/L Potassium Level 3.3 L 3.5-5.1 mmol/L Chloride Level 104 98-107 mmol/L Carbon Dioxide Level 20 20-31 mmol/L Anion Gap 14 5-15 Blood Urea Nitrogen 37 H 9-23 mg/dL Creatinine 1.94 H 0.550-1.02 mg/dL Glomerular Filtration Rate Calc 26 >90 mL/min BUN/Creatinine Ratio 19.1 10.0-20.0 Serum Glucose 94 74-106 mg/dL Calcium Level 7.7 L 8.7-10.4 mg/dL Phosphorus Level 3.3 2.4-5.1 mg/dL Magnesium Level 1.5 L 1.6-2.6 mg/dL Test 02/02/25 23:51 02/02/25 22:26 02/02/25 21:01 02/02/25 19:57 Range/Units POC Glucose 118 H 132 H 119 H 159 H 70-106 mg/dl Test 02/02/25 18:04 02/02/25 12:04 02/02/25 11:19 02/02/25 09:16 Range/Units Sodium Level 140 136-145 mmol/L Potassium Level 3.7 3.5-5.1 mmol/L Chloride Level 106 98-107 mmol/L Carbon Dioxide Level 19 L 20-31 mmol/L Anion Gap 15 5-15 Blood Urea Nitrogen 35 H 9-23 mg/dL Creatinine 2.23 H 0.550-1.02 mg/dL Glomerular Filtration Rate Calc 22 >90 mL/min BUN/Creatinine Ratio 15.7 10.0-20.0 Serum Glucose 141 H 74-106 mg/dL Calcium Level 7.7 L 8.7-10.4 mg/dL Phosphorus Level 4.0 2.4-5.1 mg/dL Magnesium Level 1.5 L 1.6-2.6 mg/dL POC Glucose 167 H 164 H 70-106 mg/dl Blood Gas Specimen Type Arterial Blood Gas Sample Site Right radial Blood Gas Patient Temperature 37.0 Arterial Blood Date Drawn [id number] Arterial Blood pH 7.465 H 7.350-7.450 Arterial Blood Partial Pressure CO2 16.1 *L 32.0-45.0 mmHg Arterial Blood Partial Pressure O2 87.4 83.0-108.0 mmHg Arterial Blood HCO3 11.3 L 21.0-28.0 mmol/L Arterial Blood Oxygen Saturation 96.3 94.0-98.0 % Arterial Blood Base Excess -9.8 L -2.0-3.0 mmol/L Arterial Blood Oxyhemoglobin 95.5 94.0-98.0 % Arterial Blood Carboxyhemoglobin 0.2 L 0.5-1.5 % Arterial Blood Methemoglobin 0.6 0.0-1.5 % Mack Test Yes Blood Gas Total Hemoglobin 12.40 12.0-16.0 g/dL Blood Gas Modality Room air FiO2 % 21.0 Blood Gas Critical Value Read Back Yes Blood Gas Notified Whom Dennis hanna md Blood Gas Notified Time [id number] Blood Gas Notified By Mason copper tapper Test 02/02/25 08:19 Range/Units White Blood Count 5.2 4.4-10.8 10^3/uL Red Blood Count 4.72 4.0-5.20 10^6/uL Hemoglobin 11.3 L 12.2-16.2 g/dL Hematocrit 35.5 L 36.0-46.0 % Mean Corpuscular Volume 75.1 L 80.0-100.0 fL Mean Corpuscular Hemoglobin 24.0 L 28.0-32.0 pg Mean Corpuscular Hemoglobin Concent 32.0 32.0-36.0 g/dL Red Cell Distribution Width 17.0 H 11.8-14.3 % Platelet Count 134 L 140-450 10^3/uL Mean Platelet Volume 7.5 6.9-10.8 fL Neutrophils (%) (Auto) 37.0-80.0 % Lymphocytes (%) (Auto) 10.0-50.0 % Monocytes (%) (Auto) 0.0-12.0 % Basophils (%) (Auto) 0.0-2.0 % Neutrophils # (Auto) 1.6-8.6 10 ^3/uL Lymphocytes # (Auto) 0.4-5.4 10 ^3/uL Monocytes # (Auto) 0-1.3 10 ^3/uL Differential Total Cells Counted 100.0 100 Neutrophils % (Manual) 79 37.0-80.0 Band Neutrophils % (Manual) 15 Lymphocytes % (Manual) 4 L 10.0-50.0 Monocytes % (Manual) 0 0-12 Eosinophils % (Manual) 2 0-7 Basophils % (Manual) 0 0.0-2.0 Metamyelocytes % (manual) 0 Myelocytes % (Manual) 0 Promyelocytes % (Manual) 0 Blast Cells % (Manual) 0 Reactive Lymphocytes 0 Platelet Estimate Decreased Hypochromasia (manual) Slight Microcytosis Slight Sodium Level 138 136-145 mmol/L Potassium Level 3.6 3.5-5.1 mmol/L Chloride Level 106 98-107 mmol/L Carbon Dioxide Level 14 L 20-31 mmol/L Anion Gap 18 H 5-15 Blood Urea Nitrogen 34 H 9-23 mg/dL Creatinine 2.14 H 0.550-1.02 mg/dL Glomerular Filtration Rate Calc 23 >90 mL/min BUN/Creatinine Ratio 15.9 10.0-20.0 Serum Glucose 170 H 74-106 mg/dL Calcium Level 8.6 L 8.7-10.4 mg/dL Troponin I High Sensitivity 6 </=34 ng/L Beta-Hydroxybutyric Acid < 0.4 mmol/L Assessment 79-year-old female past medical history of diabetes presents to the hospital complaining of weakness. She was admitted to the hospital due to concern for hyperglycemia Acute kidney injury hemodynamically mediated Chronic kidney disease stage IIIB Diabetes Anion gap metabolic acidosis Urinalysis does not show any ketones Beta hydroxy is pending. This is less likely diabetic ketoacidosis Patient's metabolic acidosis is likely due to acute kidney injury and renal disease I recommend IV fluid hydration Convert insulin to subcu Start low carb diet metformin on hold and remain off if GFR < 40 % care time 55 mins Plan discussed with: Patient CARLOS PEPPER MD Feb 03, 2025 13:47
[2025-02-03 13:55] LABS: Magnesium 2.0 mg/dL (1.6-2.6)
[2025-02-03 14:00] LABS: Potassium 3.7 mmol/L (3.5-5.1); Sodium 141 mmol/L (136-145)
[2025-02-03 14:01] LABS: Anion Gap 12 (5-15); Carbon Dioxide 21 mmol/L (20-31)
[2025-02-03 14:05] LABS: Calcium 7.4 mg/dL (8.7-10.4); Chloride 108 mmol/L (98-107)
[2025-02-03 14:06] LABS: BUN/Creatinine Ratio 18.4 (10.0-20.0); Glucose 89 mg/dL (74-106)
[2025-02-03 14:07] LABS: Blood Urea Nitrogen 29 mg/dL (9-23)
[2025-02-03] MEDS ORDERED: DEXTROSE (50%) 50ML SYRG IV PRN (14:30)
--- NOTE | 2025-02-03 15:39 | DVHPN2 ---
Subjective Patient is currently denies any complaints, off of insulin drip, we will start diabetic diet, patient denies any chest pain shortness of breath. Changes from previous H/P or p: No Changes Objective Vitals Vital Signs Date Time Temp Pulse Resp B/P (MAP) Pulse Ox O2 Delivery O2 Flow Rate FiO2 02/03/25 15:00 87 12 126/61 (82) 96 02/03/25 10:15 98.0 98.0 02/03/25 10:00 Room Air* 0 21 Intake/Output Intake and Output 02/03/25 07:00 Intake Total 1254.5 ml Output Total 100 ml Balance 1154.5 ml Intake Oral 250 ml IV Total 1004.5 ml Output Urine Total 100 ml # Bowel Movements 2 Exam HEENT pupils are reactive Neck is supple CV is S1-S2 regular rate. 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 Medications Current Medications Medications Dose Ordered Sig/Kennedy Route Start Time Stop Time Status Last Admin Dose Admin Acetaminophen/ Hydrocodone Bitart 1 tab Q4HP PRN PO 02/02/25 14:15 Hold Ondansetron HCl 4 mg Q4HP PRN IV 02/02/25 14:15 Enoxaparin Sodium 40 mg DAILY SC 02/03/25 10:00 UNV Acetaminophen 650 mg Q6HP PRN PO 02/02/25 14:15 Morphine Sulfate 2 mg Q4HPRN PRN IV 02/02/25 14:15 Hold Nitroglycerin 0.4 mg Q5MINP PRN SL 02/02/25 14:15 Morphine Sulfate 2 mg Q30M PRN IV 02/02/25 14:15 Hold Enoxaparin Sodium 30 mg DAILY SC 02/03/25 10:00 Sodium Chloride 1,000 ml @ 125 mls/hr Q8H IV 02/03/25 12:15 02/03/25 12:15 125 MLS/HR Diagnostic Test (Pha) 1 strip ACHS 02/03/25 17:00 Insulin Human Regular HS SC 02/03/25 22:00 Insulin Human Regular AC SC 02/03/25 17:00 Dextrose 50 ml UD PRN IV 02/03/25 14:30 Laboratory Results Laboratory Tests 02/02/25 08:19 02/03/25 13:27 Chemistry Test 02/02/25 18:04 02/03/25 00:27 02/03/25 07:30 02/03/25 13:27 Calcium Level 7.7 mg/dL (8.7-10.4) L 7.7 mg/dL (8.7-10.4) L Pending 7.4 mg/dL (8.7-10.4) L Magnesium Level 1.5 mg/dL (1.6-2.6) L 1.5 mg/dL (1.6-2.6) L Pending 2.0 mg/dL (1.6-2.6) Phosphorus Level 4.0 mg/dL (2.4-5.1) 3.3 mg/dL (2.4-5.1) Pending 2.9 mg/dL (2.4-5.1) HgA1c, TSH Test 02/03/25 09:13 Hemoglobin A1c 7.4 % A1C (<5.7) H Urinalysis Test 02/03/25 10:57 Urine Color Light-yellow (Yellow) Urine Clarity Clear (Clear) Urine pH 5.0 (5.0-9.0) Urine Specific [place] 1.013 (1.001-1.035) Urine Protein Negative (Negative) Urine Ketones Negative (Negative) Urine Blood Negative /uL (Negative) Urine Nitrite Negative (Negative) Urine Bilirubin Negative (Negative) Urine Urobilinogen Normal mg/dL (Negative) Urine Leukocyte Esterase Negative /uL (Negative) Urine RBC <1 /hpf (0 - 4) Urine Microscopic WBC 1 /HPF (0-5) Urine Squamous Epithelial Cells Few /hpf (<5) Urine Bacteria None seen /hpf (None Seen) Urine Creatinine 59.52 mg/dL (30.0-125.0) Urine Protein/Creatinine Ratio 0.37 Urine Glucose Normal mg/dL (Normal) Urine Total Protein 21.9 mg/dL (1-14) H Assessment/Plan Assessment/Plan 79-year-old female with a known history of diabetes mellitus type 2, hypertension, anxiety disorder presented to the hospital with generalized weakness found to have 1. Diabetic ketoacidosis , resolved 2. Metabolic acidosis secondary to 1, resolved 3. Acute kidney injury suspected secondary to vasomotor nephropathy, improved 4. Diabetes mellitus type 2 with a hemoglobin A1c7.4 5. Hypertension 6. Anxiety disorder -continue insulin sliding scale, we will start Januvia low dose. -health and social care teacher consultation for home health home safety evaluation upon discharge -physical therapy evaluation and treatment Plan discussed with: Patient, Son My Orders Orders - WALESKA CHAVARRIA MD Procedure Category Date Status Time Sodium Chloride 0.9% PHA 02/03/25 In Process 12:15 Transfer Orders XFER 02/03/25 Transmitted 14:17 Glucose Blood PHA 02/03/25 In Process (Accu-Chek Comfort 17:00 Insulin R (Human) PHA 02/03/25 In Process (Insulin R) 22:00 Insulin R (Human) PHA 02/03/25 In Process (Insulin R) 17:00 Dextrose 50% Syringe PHA 02/03/25 In Process 14:30 Consistent DIET 02/03/25 Transmitted Carb(Ccho)Diabetes Dinner Date of Service: Feb 03, 2025 Billing Provider: WALESKA CHAVARRIA MD Common Visit Codes: NOT BILLABLE WALESKA CHAVARRIA MD Feb 03, 2025 15:39
[2025-02-03] MEDS: ACCU-CHEK COMFORT CURVE STRIP VI SCH (17:00)
[2025-02-03 17:36] VITALS: BP 139/75; PULSE 100; RESP 16; TEMP 97.4; O2SAT 96
[2025-02-03] MEDS: InsuLIN REG 1unit/0.01ml Soln (100units/ml) SC SCH ×2 (18:51→22:27)
[2025-02-03 19:51] LABS: Magnesium 1.9 mg/dL (1.6-2.6)
[2025-02-03 20:00] VITALS: PULSE 110; PULSE 96; RESP 18; O2SAT 97
[2025-02-03 21:00] VITALS: BP 157/62; PULSE 103; RESP 18; TEMP 97.7; O2SAT 97
[2025-02-04] MEDS: ACETAMINOPHEN 325 MG TAB PO PRN (00:15)
[2025-02-04 01:00] VITALS: BP 148/86; PULSE 94; RESP 18; TEMP 98.1; O2SAT 98
[2025-02-04 05:00] VITALS: BP 148/67; PULSE 82; RESP 18; TEMP 97.5; O2SAT 97
[2025-02-04 08:00] VITALS: PULSE 79; PULSE 86; RESP 18; O2SAT 96
[2025-02-04 08:12] LABS: Hematocrit 30.1 % (36.0-46.0); Hemoglobin 9.5 g/dL (12.2-16.2); Mean Corpuscular Hemoglobin 23.6 pg (28.0-32.0); Mean Corpuscular Volume 75.0 fL (80.0-100.0); Nucleated Red Blood Cells % 0.1 %
[2025-02-04 08:14] LABS: Potassium 3.7 mmol/L (3.5-5.1); Sodium 143 mmol/L (136-145)
[2025-02-04 08:15] LABS: Anion Gap 12 (5-15)
[2025-02-04 08:21] LABS: BUN/Creatinine Ratio 15.6 (10.0-20.0); Blood Urea Nitrogen 19 mg/dL (9-23); Magnesium 1.9 mg/dL (1.6-2.6)
[2025-02-04 08:24] LABS: Calcium 8.1 mg/dL (8.7-10.4); Carbon Dioxide 17 mmol/L (20-31); Chloride 114 mmol/L (98-107); Glucose 127 mg/dL (74-106)
[2025-02-04 09:00] VITALS: BP 141/64; PULSE 79; RESP 18; TEMP 97.9; O2SAT 96
[2025-02-04] MEDS: ENOXAPARIN SOD 40 MG/0.4 ML SYRINGE SC SCH (09:42)
[2025-02-04] MEDS: SODIUM CHLORIDE 0.9% 500 ML IV ONE (12:29)
--- NOTE | 2025-02-04 12:31 | DVHDS2 ---
Discharge Summary Date of Admission Feb 02, 2025 at 14:10 Date of Discharge: Feb 04, 2025 Labs/Diagnostic Data: Laboratory Results Test 02/04/25 07:12 02/04/25 06:22 02/03/25 13:27 02/03/25 10:57 White Blood Count 6.2 10^3/uL (4.4-10.8) Red Blood Count 4.01 10^6/uL (4.0-5.20) Hemoglobin 9.5 g/dL (12.2-16.2) Hematocrit 30.1 % (36.0-46.0) Mean Corpuscular Volume 75.0 fL (80.0-100.0) Mean Corpuscular Hemoglobin 23.6 pg (28.0-32.0) Mean Corpuscular Hemoglobin Concent 31.5 g/dL (32.0-36.0) Red Cell Distribution Width 16.7 % (11.8-14.3) Platelet Count 103 10^3/uL (140-450) Mean Platelet Volume 7.5 fL (6.9-10.8) Neutrophils (%) (Auto) 65.0 % (37.0-80.0) Lymphocytes (%) (Auto) 23.5 % (10.0-50.0) Monocytes (%) (Auto) 5.8 % (0.0-12.0) Eosinophils (%) (Auto) 5.5 % (0.0-7.0) Basophils (%) (Auto) 0.2 % (0.0-2.0) Neutrophils # (Auto) 4.0 10 ^3/uL (1.6-8.6) Lymphocytes # (Auto) 1.5 10 ^3/uL (0.4-5.4) Monocytes # (Auto) 0.4 10 ^3/uL (0-1.3) Eosinophils # (Auto) 0.3 10 ^3/uL (0-0.8) Basophils # (Auto) 0 10 ^3/uL (0-0.2) Nucleated Red Blood Cells 0.1 % Sodium Level 143 mmol/L (136-145) Potassium Level 3.7 mmol/L (3.5-5.1) Chloride Level 114 mmol/L (98-107) Carbon Dioxide Level 17 mmol/L (20-31) Anion Gap 12 (5-15) Blood Urea Nitrogen 19 mg/dL (9-23) Creatinine 1.22 mg/dL (0.550-1.02) Glomerular Filtration Rate Calc 46 mL/min (>90) BUN/Creatinine Ratio 15.6 (10.0-20.0) Serum Glucose 127 mg/dL (74-106) Calcium Level 8.1 mg/dL (8.7-10.4) Phosphorus Level 3.2 mg/dL (2.4-5.1) Magnesium Level 1.9 mg/dL (1.6-2.6) POC Glucose 133 mg/dl (70-106) Lactic Acid Level 1.0 mmol/L (0.4-2.0) Urine Color Light-yellow (Yellow) Urine Clarity Clear (Clear) Urine pH 5.0 (5.0-9.0) Urine Specific [place] 1.013 (1.001-1.035) Urine Protein Negative (Negative) Urine Ketones Negative (Negative) Urine Blood Negative /uL (Negative) Urine Nitrite Negative (Negative) Urine Bilirubin Negative (Negative) Urine Urobilinogen Normal mg/dL (Negative) Urine Leukocyte Esterase Negative /uL (Negative) Urine RBC <1 /hpf (0 - 4) Urine Microscopic WBC 1 /HPF (0-5) Urine Squamous Epithelial Cells Few /hpf (<5) Urine Bacteria None seen /hpf (None Seen) Urine Creatinine 59.52 mg/dL (30.0-125.0) Urine Protein/Creatinine Ratio 0.37 Urine Glucose Normal mg/dL (Normal) Urine Total Protein 21.9 mg/dL (1-14) Test 02/03/25 09:13 02/02/25 09:16 02/02/25 08:19 Hemoglobin A1c 7.4 % A1C (<5.7) Blood Gas Specimen Type Arterial Blood Gas Sample Site Right radial Blood Gas Patient Temperature 37.0 Arterial Blood Date Drawn [id number] Arterial Blood pH 7.465 (7.350-7.450) Arterial Blood Partial Pressure CO2 16.1 mmHg (32.0-45.0) Arterial Blood Partial Pressure O2 87.4 mmHg (83.0-108.0) Arterial Blood HCO3 11.3 mmol/L (21.0-28.0) Arterial Blood Oxygen Saturation 96.3 % (94.0-98.0) Arterial Blood Base Excess -9.8 mmol/L (-2.0-3.0) Arterial Blood Oxyhemoglobin 95.5 % (94.0-98.0) Arterial Blood Carboxyhemoglobin 0.2 % (0.5-1.5) Arterial Blood Methemoglobin 0.6 % (0.0-1.5) Mack Test Yes Blood Gas Total Hemoglobin 12.40 g/dL (12.0-16.0) Blood Gas Modality Room air FiO2 % 21.0 Blood Gas Critical Value Read Back Yes Blood Gas Notified Whom Dennis hanna md Blood Gas Notified Time [id number] Blood Gas Notified By Mason crawford Differential Total Cells Counted 100.0 (100) Neutrophils % (Manual) 79 (37.0-80.0) Band Neutrophils % (Manual) 15 Lymphocytes % (Manual) 4 (10.0-50.0) Monocytes % (Manual) 0 (0-12) Eosinophils % (Manual) 2 (0-7) Basophils % (Manual) 0 (0.0-2.0) Metamyelocytes % (manual) 0 Myelocytes % (Manual) 0 Promyelocytes % (Manual) 0 Blast Cells % (Manual) 0 Reactive Lymphocytes 0 Platelet Estimate Decreased Hypochromasia (manual) Slight Microcytosis Slight Troponin I High Sensitivity 6 ng/L (</=34) Beta-Hydroxybutyric Acid mmol/L (< 0.4) Other Laboratory Tests 02/04/25 07:12 Brief Hx & Hospital Course: 79-year-old female with a known history of diabetes mellitus type 2, hypertension, anxiety disorder presented to the hospital with generalized weakness found to have mild diabetic ketoacidosis as well as acute kidney injury with a metabolic acidosis. Patient was started on insulin drip which currently turned off. Patient's downgraded to telemetry. Patient's remains physically deconditioned I gave her option of sending her to residential facility for rehab physical therapy but patient has refused she wanted to go home. Patient will be given IV fluids. Patient needs to follow up outpatient with the PCP as well as Nephrology in 1-2 weeks with a repeat BMP. Diabetic education. Patient is being discharged under stable condition. Condition at Discharge: Stable Final Diagnosis/Problems List 79-year-old female with a known history of diabetes mellitus type 2, hypertension, anxiety disorder presented to the hospital with generalized weakness found to have 1. Diabetic ketoacidosis , resolved 2. Metabolic acidosis secondary to 1, resolved 3. Acute kidney injury suspected secondary to vasomotor nephropathy, improved 4. Diabetes mellitus type 2 with a hemoglobin A1c7.4 5. Hypertension 6. Generalized Anxiety disorder Discharge Disposition: Home with Health Services SNF Discharge Will this Physician continue t: No Discharge Instruct/Medications Diet: Cardiac 2g Na,low cholest Diet comment: 1800 ADA diet. Activity: No Restrictions, As Tolerated Follow Up/Referral: Follow up with the PCP in one week Follow up with the Nephrology, Dr. Michele in 1-2 weeks with a repeat BMP. Medications: Resume home medications. Continued Medications: Amlodipine Besylate (Amlodipine Besylate) 2.5 Mg Tab 1 TAB PO DAILY, #30 TAB 5 Refills Buspirone Hcl (Buspirone Hcl) 10 Mg Tab 10 MG PO Q12HR for 30 Days, MG Metformin Hydrochloride (Metformin Hcl) 500 Mg Tab 500 MG PO DAILY for 30 Days, MG Metoprolol Tartrate (Metoprolol Tartrate) 50 Mg Tab 50 MG PO BIDLS for 30 Days, MG Sertraline Hcl (Zoloft) 25 Mg Tab 1 TAB PO DAILY, #30 TAB 2 Refills Scheduled Amlodipine Besylate (Amlodipine Besylate), 1 TAB PO DAILY, (Reported) Buspirone Hcl (Buspirone Hcl), 10 MG PO Q12HR, (Reported) Metformin Hydrochloride (Metformin Hcl), 500 MG PO DAILY, (Reported) Metoprolol Tartrate (Metoprolol Tartrate), 50 MG PO BIDLS, (Reported) Sertraline Hcl (Zoloft), 1 TAB PO DAILY, (Reported) Discharge Statement: "Patient was advised to return to the ER or call 911 if any headaches, dizziness, shortness of breath, chest pain, abdominal pain, bleeding, fevers, or worsening of medical condition. Patient was counseled about treatment plan, medications, possible side effects, patientverbalized understanding. All questions were answered to the best of my ability. This discharge took greater then 30 minutes in planning, reviewing documentation, counseling the patient, and discussing with other team members." ASSESSMENT ASSESSMENT Assessment 79-year-old female with a known history of diabetes mellitus type 2, hypertension, anxiety disorder presented to the hospital with generalized weakness found to have 1. Diabetic ketoacidosis , resolved 2. Metabolic acidosis secondary to 1, resolved 3. Acute kidney injury suspected secondary to vasomotor nephropathy, improved 4. Diabetes mellitus type 2 with a hemoglobin A1c7.4 5. Hypertension 6. Generalized Anxiety disorder Date of Service: Feb 04, 2025 Billing Provider: WALESKA CHAVARRIA MD Common Visit Codes: NOT BILLABLE WALESKA CHAVARRIA MD Feb 04, 2025 12:31
[2025-02-04] MEDS ORDERED: METOPROLOL TARTRATE 50 MG TAB PO SCH (12:45)
[2025-02-04 13:00] VITALS: BP 165/83; PULSE 94; RESP 20; TEMP 97.8; O2SAT 98
[2025-02-04] MEDS: METOPROLOL TARTRATE 50 MG TAB PO SCH (14:04)
--- NOTE | 2025-02-04 14:18 | DVHPN2 ---
Progress Note Date Seen: Feb 04, 2025 Medical Necessity Reason Pt with a Central, PICC or Fol: No Subjective Patient reports: Feels better Objective vital signs Vital Sign Date Time Temp Pulse Resp B/P (MAP) Pulse Ox O2 Delivery O2 Flow Rate FiO2 02/04/25 14:04 94 173/79 02/04/25 13:00 97.8 20 98 97.8 02/04/25 08:00 Room Air* 0 21 Total Intake and Output 02/03/25 02/03/25 02/04/25 15:00 23:00 07:00 Intake Total 450 ml 325 ml 1405 ml Output Total 1300 ml Balance 450 ml 325 ml 105 ml medications Current Medications Medications Dose Ordered Sig/Kennedy Route Start Time Stop Time Status Last Admin Dose Admin Acetaminophen/ Hydrocodone Bitart 1 tab Q4HP PRN PO 02/02/25 14:15 Hold Ondansetron HCl 4 mg Q4HP PRN IV 02/02/25 14:15 Enoxaparin Sodium 40 mg DAILY SC 02/03/25 10:00 UNV Acetaminophen 650 mg Q6HP PRN PO 02/02/25 14:15 02/04/25 00:15 650 MG Morphine Sulfate 2 mg Q4HPRN PRN IV 02/02/25 14:15 Hold Nitroglycerin 0.4 mg Q5MINP PRN SL 02/02/25 14:15 Morphine Sulfate 2 mg Q30M PRN IV 02/02/25 14:15 Hold Diagnostic Test (Pha) 1 strip ACHS 02/03/25 17:00 02/04/25 11:30 1 STRIP Insulin Human Regular HS SC 02/03/25 22:00 02/03/25 22:27 2 UNITS Insulin Human Regular AC SC 02/03/25 17:00 02/04/25 06:42 2 UNITS Dextrose 50 ml UD PRN IV 02/03/25 14:30 Enoxaparin Sodium 40 mg DAILY SC 02/04/25 10:00 02/04/25 09:42 40 MG Buspirone HCl 15 mg Q8HR PO 02/04/25 14:00 02/04/25 14:04 15 MG Metformin HCl 500 mg BID PO 02/04/25 22:00 Amlodipine Besylate 2.5 mg DAILY PO 02/05/25 10:00 UNV Sertraline HCl 25 mg DAILY PO 02/05/25 10:00 Metoprolol Tartrate 50 mg TID PO 02/04/25 14:00 02/04/25 14:04 50 MG Examination: GENERAL:Normal laboratory and microbiology Laboratory Tests 02/04/25 07:12 Test 02/04/25 07:12 Range/Units Serum Glucose 127 H 74-106 mg/dL Problem List/Assessment/Plan Problem List/Assessment/Plan 79-year-old female past medical history of diabetes presents to the hospital complaining of weakness. She was admitted to the hospital due to concern for hyperglycemia Acute kidney injury hemodynamically mediated Chronic kidney disease stage IIIB Diabetes Anion gap metabolic acidosis DAVID has improved resume home meds metformin remain on if GFR > 40 % patient can come to renal clinic for CKD management Plan discussed with: Patient Total Time (mins): 23 CARLOS PEPPER MD Feb 04, 2025 14:18
[2025-02-05] MEDS ORDERED: SERTRALINE HCL 50 MG TAB PO SCH (10:00)
[2025-02-05] MEDS ORDERED: BLOO-200 XX (16:28)
[2025-02-05] MEDS ORDERED: LANC-347 XX (16:28)
== END 2025-02-04 15:25 | disposition home health service (06) | DRG 637 ==
LOC: ER 07:46 → EDBD 07:46 → OVERFLOW 14:10 → TELE-WESTW 02-03 18:33
PROVIDERS: ADMIT Internal Medicine; ATTEND Internal Medicine
PROC: 05HF33Z Insertion of Infusion Device into Left Cephalic Vein, Percutaneous Approach (ICD-10-PCS; principal; 2025-02-02)
PROC: B54NZZA Ultrasonography of Left Upper Extremity Veins, Guidance (ICD-10-PCS; 2025-02-02)
DX: E11.10 Type 2 diabetes mellitus with ketoacidosis without coma (principal); N17.0 Acute kidney failure with tubular necrosis; N18.32 Chronic kidney disease, stage 3b; I12.9 Hypertensive chronic kidney disease with stage 1 through stage 4 chronic kidney disease, or unspecified chronic kidney disease; E11.22 Type 2 diabetes mellitus with diabetic chronic kidney disease; F41.1 Generalized anxiety disorder; E78.5 Hyperlipidemia, unspecified; Z88.5 Allergy status to narcotic agent; Z90.710 Acquired absence of both cervix and uterus; Z83.3 Family history of diabetes mellitus; Z79.4 Long term (current) use of insulin
CPT/HCPCS: 36415; 36600; 76775; 80048; 81001; 82010; 82570; 82805; 82962; 83036; 83605; 83735; 84100; 84156; 84484; 85007; 85025; 85027; 93005; 96361; 96374; 96375; 97110; 97163; 99291; 99292; G0378; J1815; J3480